=== PATIENT | female | born 1950 | race Caucasian/White ===

== ENCOUNTER 2018-05-03 06:29 | Day surgery (SDC) | payer MEDICARE, BC ==
[2018-05-03] MEDS ORDERED: Bupivacaine 0.5% 30 ML SDV ONE (06:54)
[2018-05-03] MEDS ORDERED: Sodium Chloride 0.45% 1,000 ML IV SCH (07:00)
[2018-05-03] MEDS ORDERED: Propofol 200 MG/20 ML SDV ONE (07:01)
[2018-05-03] MEDS ORDERED: Midazolam 1 MG/ML 2 ML SDV ONE (07:02)
[2018-05-03] MEDS ORDERED: fentaNYL 100 MCG/2 ML SDV ONE (07:02)
--- NOTE | 2018-05-03 10:00 | PCM.OPNOTE ---
- General Post-Op/Procedure Note Date of Surgery/Procedure: 05/03/18 Operative Procedure(s): A1 renetta release right index finger Findings: thick A1 renetta, slight thickening of flexor tendon Pre Op Diagnosis: Stenosing tenosynovitis right index finger Post-Op Diagnosis: Stenosing tenosynovitis right index finger Anesthesia Technique: Local, Moderate Sedation Primary Surgeon: Juan FULLER in mLs: 2 Condition: Good Free Text/Narrative:: Intake & Output 05/02/18 05/03/18 05/03/18 22:59 06:59 14:59 Intake Total 75 Balance 75 Surgical indications: 67-year-old female with a history of progressively painful locking and catching of the right index finger. 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 She has a history of other trigger fingers and trigger finger releases with good success. She has not had success with steroid injection. She now presents for a release of the A1 renetta of the right index finger for stenosing tenosynovitis. Risks benefits and potential complications of the procedure were discussed with the patient and she agrees to proceed. Procedure: Patient was placed supine with a tourniquet about the right upper arm. Arm was prepped and draped in a sterile fashion. Patient was given moderate sedation by anesthesia and 3 cc of 0.5% Marcaine was infiltrated into the skin overlying the metacarpal head and A1 renetta of the index finger.Transverse incision was then made in line with the flexor crease. Blunt dissection was then carried down through the subcutaneous tissues. Retractors were then placed. Pressure from the retractors provided adequate compression for minimal bleeding at the surgical site and the tourniquet was not utilized. The inferior edge of the A1 renetta was identified. This was quite thick and fibrotic. Small incision was made longitudinally with a 15 blade. Scissor was then used to extend the release distally.This was taken up to the distal end. Free passage of the scissor after release indicated successful release of the renetta. Finger was taken through range of motion and the flexor tendons were visualized. Slight thickening was noted in the region of the A1 renetta but no significant abnormalities were identified. The incision was then closed with 3- 0 nylon in interrupted mattress fashion. Sterile dressing was applied. Patient tolerated the procedure very well and there were no complications. She was taken from the operating room in stable condition.
== END 2018-05-03 09:25 | disposition home or self-care (01) ==
LOC: JP.SDS 06:29
PROVIDERS: ATTEND Specialist
DX: M65.841 Other synovitis and tenosynovitis, right hand (principal); M65.321 Trigger finger, right index finger; I10 Essential (primary) hypertension; E11.9 Type 2 diabetes mellitus without complications; E78.5 Hyperlipidemia, unspecified; I25.2 Old myocardial infarction; Z79.4 Long term (current) use of insulin; Z79.899 Other long term (current) drug therapy
CPT/HCPCS: 26055; J2250; J2704; J3010; J3490

== ENCOUNTER 2019-04-25 06:13 | Day surgery (SDC) | payer MEDICARE, BC ==
[2019-04-25] MEDS ORDERED: Bupivacaine 0.5% 30 ML SDV ONE ×2 (06:32→07:37)
[2019-04-25] MEDS ORDERED: Lactated Ringers 1,000 ML IV SCH (07:00)
[2019-04-25] MEDS ORDERED: Clindamycin Phosphate 900 MG in Sodium Chloride 0.9% 100 ML IV ONE (07:00)
[2019-04-25] MEDS ORDERED: Nozin Nasal Sanitizer NASBOTH ONE (07:00)
[2019-04-25] MEDS ORDERED: fentaNYL 100 MCG/2 ML SDV ONE ×2 (07:35→08:40)
[2019-04-25] MEDS ORDERED: Propofol 200 MG/20 ML SDV ONE ×3 (07:35→09:07)
[2019-04-25] MEDS ORDERED: Midazolam 1 MG/ML 2 ML SDV ONE (07:35)
--- NOTE | 2019-05-21 10:22 | OR ---
DATE OF PROCEDURE: 04/25/2019 SURGEON: Juan Hinojosa MD PREOPERATIVE DIAGNOSIS: Right rotator cuff tear. POSTOPERATIVE DIAGNOSES: Right rotator cuff tear, large with moderate retraction. PROCEDURE: 1. Arthroscopy of right shoulder with repair of rotator cuff. 2. Subacromial decompression with acromioplasty. ANESTHESIA: Interscalene block with sedation. INDICATIONS: Ms. Taylor is a 68-year-old female with history of progressive pain and weakness in the right shoulder for the past several months. She has difficulty with any overhead lifting and reaching. Examination and MRI were consistent with a complete tear of the rotator cuff with retraction. She now presents to the operating room for arthroscopy of the right shoulder with attempted arthroscopic rotator cuff repair and possible open repair. Risks, benefits, and potential complications were discussed with the patient. She agrees with plan. PROCEDURE IN DETAIL: After adequate anesthesia was obtained, the patient was placed in the lateral decubitus position and secured with the beanbag positioner. Right shoulder and arm were then prepped and draped in a sterile fashion. 10 pounds of traction was placed in the shoulder traction unit. A standard posterior portal was established, and the glenohumeral joint was evaluated. This revealed some mild degenerative changes in the glenoid without full-thickness cartilage loss. Mild fraying of the labrum was present. Grade 2 and 3 changes noted in the humeral head and glenoid. Biceps tendon was intact. Subscapularis was intact. The supraspinatus and infraspinatus showed full-thickness tears. Anterior portal was established. A shaver was introduced, and the degenerative portion of the labrum was mildly debrided. Biceps tendon was further evaluated by pulling this into the joint revealing no significant tear or tendinopathy. The scope was then removed and placed in the subacromial space. Moderate thickening of the bursa was present. Lateral portal was established. A combination of a bur and ablation wand were used to debride the bursa for better visualization. A full-thickness tears of the supraspinatus and infraspinatus were noted with moderate retraction back to the midportion of the humeral head. Undersurface of the acromion was cleared of soft tissue. An acromioplasty was then performed with a bur, removing approximately 5 mm, and bevelling that medially and posteriorly. Elevator was used to free adhesions from the rotator cuff, and a grasper was used to evaluate the mobility of the cuff. It was found that the cuff edge could be brought over to the footprint. Edges of the cuff were lightly debrided with a shaver. Superior surface of the greater tuberosity was lightly decorticated with a bur. Two Mitek Healix anchors were then placed, one anterior and one posterior. Expressew device was then used to place sutures up through the tendon in a mattress fashion. Sutures were then tied in standard arthroscopic technique. Additional fixation was obtained with a third anchor in the edge, which was used to place sutures in a simple fashion reinforcing the repair laterally. Two of the suture pairs were brought through a Mitek knotless anchor. Awl was used to prepare a tunnel off the lateral edge of the tuberosity. Knotless anchor was then secured in this position forming a suture bridge and a double row repair. Sutures were then cut. Arm was taken through internal and external rotation. Repair was assessed and found to be very stable. Scope was withdrawn. Port sites were closed in a standard fashion, infiltrated with Marcaine, and a sterile dressing was applied. The patient tolerated the procedure well. There were no complications, taken from the operating room in stable condition. Juan Hinojosa MD /[id number] [id number]
== END 2019-04-25 16:01 | disposition home or self-care (01) ==
LOC: JP.SDS 06:13
PROVIDERS: ATTEND Specialist
DX: M75.121 Complete rotator cuff tear or rupture of right shoulder, not specified as traumatic (principal); I13.10 Hypertensive heart and chronic kidney disease without heart failure, with stage 1 through stage 4 chronic kidney disease, or unspecified chronic kidney disease; E11.22 Type 2 diabetes mellitus with diabetic chronic kidney disease; N18.3 Chronic kidney disease, stage 3 (moderate); E78.5 Hyperlipidemia, unspecified; F41.8 Other specified anxiety disorders; E66.9 Obesity, unspecified; H90.3 Sensorineural hearing loss, bilateral; I25.10 Atherosclerotic heart disease of native coronary artery without angina pectoris; Z88.1 Allergy status to other antibiotic agents; Z88.2 Allergy status to sulfonamides; Z79.02 Long term (current) use of antithrombotics/antiplatelets; Z79.899 Other long term (current) drug therapy; Z98.890 Other specified postprocedural states; Z68.35 Body mass index [BMI] 35.0-35.9, adult
CPT/HCPCS: 29826; 29827; A9270; C1713; J2250; J2704; J3010; J3490; J7050; J7120

== ENCOUNTER 2019-07-25 17:28 | Emergency (ER) | payer MEDICARE, BC ==
[2019-07-25] MEDS ORDERED: Sodium Chloride 0.9% 10 ML Syringe FLUSH PRN (17:49)
[2019-07-25] MEDS ORDERED: Aspirin 81 MG Tab.Chew PO ONE (17:49)
[2019-07-25] MEDS ORDERED: Morphine 2 MG/ML Syringe IVPUSH PRN (17:49)
[2019-07-25] MEDS: Nitroglycerin 0.4 MG Tab.SL SL PRN ×3 (17:58→18:19)
[2019-07-25] MEDS ORDERED: Heparin Sodium 5,000 Units/ML Vial IVPUSH ONE (18:24)
[2019-07-25] MEDS ORDERED: Ticagrelor 90 MG Tab PO ONE (18:24)
[2019-07-25] MEDS ORDERED: Nitroglycerin/D5W 25 MG/250 ML BOTTLE IV SCH (18:30)
[2019-07-25] MEDS ORDERED: Heparin Sodium/D5W 25,000 UNITS/500 ML BAG IV SCH (18:30)
[2019-07-25] MEDS ORDERED: fentaNYL 100 MCG/2 ML SDV IVPUSH ONE (18:30)
--- NOTE | 2019-07-25 18:34 | EDM.PDOC ---
ED HPI GENERAL MEDICAL PROBLEM - General Chief Complaint: Abdominal Pain Stated Complaint: VOMITING,NAUSEA,UNABLE TO URINATE Time Seen by Provider: 07/25/19 17:39 Source of Information: Reports: Patient, Family, Old Records, RN Notes Reviewed History Limitations: Reports: No Limitations - History of Present Illness INITIAL COMMENTS - FREE TEXT/NARRATIVE: 68-year-old female presents emergency department a complaint of nausea and vomiting with chest pressure. She has a known history of coronary artery disease with stenting in 2014 she states the intense nausea and vomiting with chest pressure began about 330 this afternoon she was very diaphoretic initially but that has resolved she rates her pain 5 out of 10 she does have a history of diabetes mellitus type 2 as well Lower Abdominal Pain Score (Numeric/FACES): 6 - Related Data Allergies Allergy/AdvReac Type Severity Reaction Status Date / Time cephalexin Allergy Other Verified 07/25/19 18:01 Sulfa (Sulfonamide Allergy Rash Verified 07/25/19 18:01 Antibiotics) Home Meds: Home Meds ALPRAZolam [Alprazolam] 0.5 mg PO Q6H PRN 08/05/17 [History] Citalopram Hydrobromide [Celexa] 20 mg PO DAILY 08/05/17 [History] Clopidogrel Bisulfate [Clopidogrel] 75 mg PO DAILY 08/05/17 [History] Insulin Glarg,Human.Rec.Analog [Lantus Solostar] 25 units SQ DAILY 08/05/17 [ History] Insulin Lispro [Humalog] 10 - 20 unit SQ TIDMEALS 08/05/17 [History] Losartan [Cozaar] 50 mg PO DAILY 08/05/17 [History] Metoprolol Succinate 25 mg PO DAILY 08/05/17 [History] Nitroglycerin [Nitrostat] 0.4 mg SL ASDIRECTED PRN 08/05/17 [History] Oxybutynin [Oxybutynin ER] 10 mg PO DAILY 08/05/17 [History] amLODIPine Besylate [Norvasc] 2.5 mg PO DAILY 08/05/17 [History] atorvaSTATin Calcium [Atorvastatin Calcium] 40 mg PO BEDTIME 08/05/17 [History] hydroCHLOROthiazide [Hydrochlorothiazide] 25 mg PO DAILY 08/05/17 [History] Acetaminophen [Tylenol] 1 - 2 tab PO Q4HR PRN 05/03/19 [History] LORazepam [Ativan] 1 mg PO ASDIRECTED 07/25/19 [History] Past Medical History HEENT History: Reports: Hard of Hearing, Impaired Vision Cardiovascular History: Reports: Blood Clots/VTE/DVT, CAD, Hypertension, [place], Stents (2014) Gastrointestinal History: Reports: Colon Polyp Genitourinary History: Reports: Renal Calculus, Urinary Incontinence 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: Musculoskeletal History: Reports: Other (See Below) Other Musculoskeletal History: s/p R RCR 04/25/19 Psychiatric History: Reports: Anxiety, Depression Endocrine/Metabolic History: Reports: Diabetes, Type II, Obesity/BMI 30+ Hematologic History: Reports: Anticoagulation Therapy - Infectious Disease History 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 mcl joint surgery x1 Social & Family History - Family History Family Medical History: Noncontributory - Tobacco Use Smoking Status *Q: Never Smoker - Caffeine Use Caffeine Use: Reports: Coffee - Recreational Drug Use Recreational Drug Use: No ED ROS GENERAL - Review of Systems Review Of Systems: See Below Constitutional: Reports: Diaphoresis HEENT: Reports: No Symptoms Respiratory: Reports: No Symptoms Cardiovascular: Reports: Chest Pain GI/Abdominal: Reports: Nausea, Vomiting : Reports: No Symptoms ED EXAM, GENERAL - Physical Exam Exam: See Below Exam Limited By: No Limitations General Appearance: Alert, WD/WN, Mild Distress Neck: Normal Inspection, Supple, Non-Tender, Full Range of Motion Respiratory/Chest: No Respiratory Distress, Lungs Clear, Normal Breath Sounds, No Accessory Muscle Use, Chest Non-Tender Cardiovascular: Regular Rate, Rhythm, No Murmur GI/Abdominal: Soft, Non-Tender Course - Vital Signs Last Recorded V/S: Last Vital Signs Temp 97.6 F 07/25/19 17:46 Pulse 61 07/25/19 18:38 Resp 12 07/25/19 18:38 BP 117/74 07/25/19 18:38 Pulse Ox 96 07/25/19 18:38 - Orders/Labs/Meds Orders: Active Orders 24 hr Category Date Time Status Cardiac Monitoring [RC] .As Directed Care 07/25/19 17:52 Active Cardiac Monitoring [RC] STAT Care 07/25/19 18:24 Active Communication Order [RC] Per Unit Routine Care 07/25/19 18:24 Active EKG Documentation Completion [RC] ASDIRECTED Care 07/25/19 17:53 Active Peripheral IV Care [RC] . DIRECTED Care 07/25/19 17:53 Active Chest 1V Frontal [CR] Stat Exams 07/25/19 17:52 Taken Heparin Sodium/D5W [Heparin 25,000 Units in D5W 500 ML] Med 07/25/19 18:30 Active 25,000 units in 500 ml IV TITRATE Morphine Med 07/25/19 17:49 Active 2 mg IVPUSH Q10M PRN Nitroglycerin [Nitrostat] Med 07/25/19 17:49 Active 0.4 mg SL Q5M PRN Nitroglycerin/D5W [Nitroglycerin 25 MG/D5W 250 ML] Med 07/25/19 18:30 Active 25 mg in 250 ml IV TITRATE Sodium Chloride 0.9% [Saline Flush] Med 07/25/19 17:49 Active 10 ml FLUSH ASDIRECTED PRN Peripheral IV Insertion Adult [OM.PC] Stat Oth 07/25/19 17:49 Ordered Saline Lock Insert [OM.PC] Stat Oth 07/25/19 17:49 Ordered EKG 12 Lead [EK] Stat Ther 07/25/19 17:52 Ordered Medication Orders Nitroglycerin/Dextrose (Nitroglycerin 25 Mg/D5w 250 Ml) 25 mg in 250 mls @ 6 mls/hr IV TITRATE DORA; Protocol Last Admin: 07/25/19 18:27 Dose: 10 mcg/min, 6 mls/hr Heparin Sodium/Dextrose (Heparin 25,000 Units In D5w 500 Ml) 25,000 units in 500 mls @ 19.791 mls/hr IV TITRATE DORA; Protocol Morphine Sulfate (Morphine) 2 mg IVPUSH Q10M PRN PRN Reason: Chest Pain Stop: 07/26/19 17:52 Last Admin: 07/25/19 18:05 Dose: 2 mg Nitroglycerin (Nitrostat) 0.4 mg SL Q5M PRN PRN Reason: Chest Pain Stop: 07/26/19 17:52 Last Admin: 07/25/19 18:19 Dose: 0.4 mg Admin: 07/25/19 18:14 Dose: 0.4 mg Admin: 07/25/19 17:58 Dose: 0.4 mg Sodium Chloride (Saline Flush) 10 ml FLUSH ASDIRECTED PRN PRN Reason: Keep Vein Open Last Admin: 07/25/19 18:38 Dose: 10 ml Labs: Laboratory Tests 07/25/19 07/25/19 Range/Units 17:45 17:45 WBC 13.8 H (4.5-11.0) K/uL RBC 4.69 (3.30-5.50) M/uL Hgb 14.3 (12.0-15.0) g/dL Hct 42.5 (36.0-48.0) % MCV 91 (80-98) fL MCH 31 (27-31) pg MCHC 34 (32-36) % Plt Count 261 (150-400) K/uL Neut % (Auto) 75 H (36-66) % Lymph % (Auto) 19 L (24-44) % [place] % (Auto) 6 (2-6) % Eos % (Auto) 1 L (2-4) % Baso % (Auto) 0 (0-1) % Sodium 136 L (140-148) mmol/L Potassium 3.4 L (3.6-5.2) mmol/L Chloride 99 L (100-108) mmol/L Carbon Dioxide 25 (21-32) mmol/L Anion Gap 15.4 H (5.0-14.0) mmol/L BUN 15 (7-18) mg/dL Creatinine 1.2 H (0.6-1.0) mg/dL Est Cr Clr Drug Dosing 32.92 mL/min Estimated GFR (MDRD) 44 L (>60) Glucose 226 H (74-106) mg/dL Calcium 9.3 (8.5-10.1) mg/dL Total Bilirubin 0.9 (0.2-1.0) mg/dL AST 26 (15-37) U/L ALT 33 (12-78) U/L Alkaline Phosphatase 100 (46-116) U/L Troponin I 0.620 H* (0.000-0.056) ng/mL Total Protein 7.6 (6.4-8.2) g/dL Albumin 3.7 (3.4-5.0) g/dL Globulin 3.9 H (2.3-3.5) g/dL Albumin/Globulin Ratio 1.0 L (1.2-2.2) Meds: Medications Generic Name Dose Route Start Last Admin Trade Name Freq PRN Reason Stop Dose Admin Nitroglycerin/Dextrose 25 mg in 250 mls @ 6 mls/hr 07/25/19 18:30 07/25/19 18 :27 Nitroglycerin 25 Mg/D5w 250 Ml IV 10 mcg/min TITRATE DORA 6 mls/hr Administration Protocol 10 MCG/MIN Heparin Sodium/Dextrose 25,000 units in 500 mls @ 19.791 mls/hr 07/25/19 18: 30 Heparin 25,000 Units In D5w 500 Ml IV TITRATE DORA Protocol 12 UNITS/KG/HR Morphine Sulfate 2 mg 07/25/19 17:49 07/25/19 18:05 Morphine IVPUSH 07/26/19 17:52 2 mg Q10M PRN Administration Chest Pain Nitroglycerin 0.4 mg 07/25/19 17:49 07/25/19 18:19 Nitrostat SL 07/26/19 17:52 0.4 mg Q5M PRN Administration Chest Pain Sodium Chloride 10 ml 07/25/19 17:49 07/25/19 18:38 Saline Flush FLUSH 10 ml ASDIRECTED PRN Administration Keep Vein Open Discontinued Medications Generic Name Dose Route Start Last Admin Trade Name Freq PRN Reason Stop Dose Admin Aspirin 324 mg 07/25/19 17:49 07/25/19 17:57 Aspirin PO 07/25/19 17:50 324 mg ONETIME ONE Administration Fentanyl 50 mcg 07/25/19 18:30 07/25/19 18:36 Sublimaze IVPUSH 07/25/19 18:31 50 mcg ONETIME ONE Administration Heparin Sodium (Porcine) 4,000 units 07/25/19 18:24 07/25/19 18:33 Heparin Sodium IVPUSH 07/25/19 18:25 4,000 units BOLUS ONE Administration Ticagrelor 180 mg 07/25/19 18:24 07/25/19 18:33 Brilinta PO 07/25/19 18:25 180 mg ONETIME ONE Administration Departure - Departure Time of Disposition: 18:47 Disposition: DC/Tfer to Acute Hospital 02 Reason for Transfer *Q: Primary PCI Indicated Condition: Fair Clinical Impression: STEMI (ST elevation myocardial infarction) Qualifiers: Involved coronary artery: unspecified coronary artery Qualified Code(s): I21.3 - ST elevation (STEMI) myocardial infarction of unspecified site Referrals: Александр Cavazos MD [Primary Care Provider] - Forms: ED Department Discharge Critical Care Note - Critical Care Note Total Time (mins): 30 Sepsis Event Note - Evaluation Sepsis Screening Result: No Definite Risk - Focused Exam Vital Signs: Vital Signs Temp Temp Pulse Pulse Resp BP BP 07/25/19 18:38 61 12 117/74 07/25/19 18:19 130/82 07/25/19 18:14 128/75 07/25/19 17:58 140/91 H 07/25/19 17:46 97.6 F 66 18 141/73 H 07/25/19 17:44 97.0 F 69 9 L BP Pulse Ox 07/25/19 18:38 96 07/25/19 18:19 07/25/19 18:14 07/25/19 17:58 07/25/19 17:46 97 07/25/19 17:44 141/73 H 96 Date Exam was Performed: 07/25/19 Time Exam was Performed: 18:43 - My Orders Last 24 Hours: My Active Orders 07/25/19 17:49 Morphine 2 mg IVPUSH Q10M PRN Nitroglycerin [Nitrostat] 0.4 mg SL Q5M PRN Sodium Chloride 0.9% [Saline Flush] 10 ml FLUSH ASDIRECTED PRN Peripheral IV Insertion Adult [OM.PC] Stat Saline Lock Insert [OM.PC] Stat 07/25/19 17:52 Cardiac Monitoring [RC] .As Directed Chest 1V Frontal [CR] Stat EKG 12 Lead [EK] Stat 07/25/19 17:53 EKG Documentation Completion [RC] ASDIRECTED Peripheral IV Care [RC] . DIRECTED 07/25/19 18:24 Cardiac Monitoring [RC] STAT Communication Order [RC] Per Unit Routine 07/25/19 18:30 Heparin Sodium/D5W [Heparin 25,000 Units in D5W 500 ML] 25,000 units in 500 ml IV TITRATE Nitroglycerin/D5W [Nitroglycerin 25 MG/D5W 250 ML] 25 mg in 250 ml IV TITRATE - Assessment/Plan Last 24 Hours: My Active Orders 07/25/19 17:49 Morphine 2 mg IVPUSH Q10M PRN Nitroglycerin [Nitrostat] 0.4 mg SL Q5M PRN Sodium Chloride 0.9% [Saline Flush] 10 ml FLUSH ASDIRECTED PRN Peripheral IV Insertion Adult [OM.PC] Stat Saline Lock Insert [OM.PC] Stat 07/25/19 17:52 Cardiac Monitoring [RC] .As Directed Chest 1V Frontal [CR] Stat EKG 12 Lead [EK] Stat 07/25/19 17:53 EKG Documentation Completion [RC] ASDIRECTED Peripheral IV Care [RC] . DIRECTED 07/25/19 18:24 Cardiac Monitoring [RC] STAT Communication Order [RC] Per Unit Routine 07/25/19 18:30 Heparin Sodium/D5W [Heparin 25,000 Units in D5W 500 ML] 25,000 units in 500 ml IV TITRATE Nitroglycerin/D5W [Nitroglycerin 25 MG/D5W 250 ML] 25 mg in 250 ml IV TITRATE Plan: Assessment Acuity = acute Site and laterality = ST elevation myocardial infarction Etiology = coronary artery disease Manifestations = none Location of injury = Home Lab values = WBC elevated 13.8 consistent leukocytosis potassium low at 3.4 consistent hypokalemia creatinine elevated 1.2 consistent with chronic renal failure stage G3 B glucose elevated to 26 consistent hyperglycemia troponin elevated 0.62 consistent with myocardial infarction EKG does show subtle changes ST elevations V2 V3 and V4 with no reciprocal changes chest x-ray I did review films myself I cannot appreciate any acute process, the official read from radiology is pending Plan Discussed case with Dr. Thompson emergency room physician [facility] at 1820 kindly excepted the patient in transport will be transported via air care [facility] also discussed the case with cardiology Dr. Mcqueen at 1840 thus far patient has been given 3 nitro 2 mg morphine 50 mcg of fentanyl 4 baby aspirin 4000 heparin unit bolus heparin drip initiated in route 180 mg Brilinta nitro drip initiated This note was dictated using [employer] voice recognition software please call with any questions on syntax or grammar.
--- NOTE | 2019-07-26 10:01 | CR ---
CHEST: Portable 07/25/2019 at 6:24 PM CLINICAL HISTORY:Chest pain COMPARISON:None FINDINGS: The heart is enlarged. Pulmonary vascularity is normal. There are atherosclerotic changes in the aorta.. No infiltrate effusion or pneumothorax seen. Impression: Cardiomegaly No acute cardiopulmonary process
== END 2019-07-25 18:58 ==
LOC: JP.ED 17:28
DX: I21.3 ST elevation (STEMI) myocardial infarction of unspecified site (principal); I10 Essential (primary) hypertension; I25.10 Atherosclerotic heart disease of native coronary artery without angina pectoris; I25.2 Old myocardial infarction; F41.9 Anxiety disorder, unspecified; F32.9 Major depressive disorder, single episode, unspecified; E11.9 Type 2 diabetes mellitus without complications; Z79.4 Long term (current) use of insulin; E66.9 Obesity, unspecified; Z68.34 Body mass index [BMI] 34.0-34.9, adult; Z88.1 Allergy status to other antibiotic agents; Z88.2 Allergy status to sulfonamides; Z79.02 Long term (current) use of antithrombotics/antiplatelets; Z79.899 Other long term (current) drug therapy
CPT/HCPCS: 36415; 71045; 80053; 84484; 85025; 93005; 93010; 96365; 96375; 99291; A9270; J1644; J2270; J3010; J3490

== ENCOUNTER 2019-07-28 11:38 | Emergency (ER) | payer MEDICARE, BC ==
--- NOTE | 2019-07-28 13:29 | EDM.PDOC ---
ED HPI GENERAL MEDICAL PROBLEM - General Chief Complaint: Fever Stated Complaint: FEVER,POST HEART ATTACK Time Seen by Provider: 07/28/19 12:15 Source of Information: Reports: Patient, Family History Limitations: Reports: No Limitations - History of Present Illness INITIAL COMMENTS - FREE TEXT/NARRATIVE: 68-year-old female in worth of intermittent fevers for the past 72 hours, just discharged yesterday after having an angiogram and cardiac stent placed. She did have a Mg catheter in for at least 4 hours. Prior to discharge she ran a low-grade fever but it resolved, last night she again spiked a fever but at 2 AM it was gone. This morning her temperature was 100.4 so she came in to be evaluated, her temperature is now normal. She has no shortness of breath or cough, no nausea or vomiting, no cold symptoms or urinary symptoms. Duration: Day(s): (Intermittent fevers for 2 days) Associated Symptoms: Reports: Fever/Chills. Denies: Confusion, Chest Pain, Cough, Headaches, Malaise, Nausea/Vomiting, Shortness of Breath, Weakness - Related Data Allergies Allergy/AdvReac Type Severity Reaction Status Date / Time cephalexin Allergy Other Verified 07/28/19 12:07 Sulfa (Sulfonamide Allergy Rash Verified 07/28/19 12:07 Antibiotics) Home Meds: Home Meds ALPRAZolam [Alprazolam] 0.5 mg PO Q6H PRN 08/05/17 [History] Citalopram Hydrobromide [Celexa] 20 mg PO DAILY 08/05/17 [History] Insulin Glarg,Human.Rec.Analog [Lantus Solostar] 25 units SQ DAILY 08/05/17 [ History] Insulin Lispro [Humalog] 10 - 20 unit SQ TIDMEALS 08/05/17 [History] Losartan [Cozaar] 25 mg PO DAILY 08/05/17 [History] Metoprolol Succinate 25 mg PO DAILY 08/05/17 [History] Nitroglycerin [Nitrostat] 0.4 mg SL ASDIRECTED PRN 08/05/17 [History] Oxybutynin [Oxybutynin ER] 10 mg PO DAILY 08/05/17 [History] atorvaSTATin Calcium [Atorvastatin Calcium] 80 mg PO BEDTIME 08/05/17 [History] Acetaminophen [Tylenol] 1 - 2 tab PO Q4HR PRN 05/03/19 [History] LORazepam [Ativan] 1 mg PO ASDIRECTED 07/25/19 [History] Aspirin [Halfprin] 81 mg PO DAILY 07/28/19 [History] Cholecalciferol (Vitamin D3) [Vitamin D3] 400 unit PO DAILY 07/28/19 [History] Magnesium Oxide [Magnesium] 400 mg PO DAILY 07/28/19 [History] [place]-3/DHA/Epa/Fish Oil [Fish Oil 1,000 mg Softgel] 1 cap PO DAILY 07/28/19 [ History] Ticagrelor [Brilinta] 90 mg PO BID 07/28/19 [History] Vitamin E 100 unit PO DAILY 07/28/19 [History] Past Medical History HEENT History: Reports: Hard of Hearing, Impaired Vision Cardiovascular History: Reports: Angina, Blood Clots/VTE/DVT, CAD, Hypertension , ID, Stents Other Cardiovascular History: Life vest Gastrointestinal History: Reports: Colon Polyp Genitourinary History: Reports: Renal Calculus, Urinary Incontinence 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: Musculoskeletal History: Reports: Other (See Below) Other Musculoskeletal History: shoulder rotator cuff Psychiatric History: Reports: Anxiety, Depression Endocrine/Metabolic History: Reports: Diabetes, Type II, Obesity/BMI 30+ Hematologic History: Reports: Anticoagulation Therapy - Infectious Disease History Infectious 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, MRSA - Past Surgical History Head Surgeries/Procedures: Reports: None Cardiovascular Surgical History: Reports: Coronary Artery Stent, Percutaneous Transluminal Angioplasty Other Cardiovascular Surgeries/Procedures: 2019 Musculoskeletal Surgical History: Reports: Shoulder Surgery Other Musculoskeletal Surgeries/Procedures:: Apr 2019 Social & Family History - Family History Family Medical History: Noncontributory - Tobacco Use Smoking Status *Q: Never Smoker - Caffeine Use Caffeine Use: Reports: Coffee - Recreational Drug Use Recreational Drug Use: No ED ROS GENERAL - Review of Systems Review Of Systems: See Below Constitutional: Reports: Fever, Chills. Denies: Malaise, Decreased Appetite HEENT: Denies: Ear Pain, Rhinitis, Throat Pain Respiratory: Denies: Shortness of Breath, Cough Cardiovascular: Denies: Chest Pain (She has had no chest pain since her cardiac procedure) GI/Abdominal: Denies: Diarrhea, Nausea, Vomiting : Denies: Frequency, Urgency Skin: Reports: No Symptoms Neurological: Denies: Headache ED EXAM, GENERAL - Physical Exam Exam: See Below Exam Limited By: No Limitations General Appearance: Alert, No Apparent Distress Head: Atraumatic Respiratory/Chest: No Respiratory Distress, Lungs Clear Cardiovascular: Regular Rate, Rhythm GI/Abdominal: Soft, Non-Tender Neurological: Alert, Oriented Psychiatric: Normal Affect, Normal Mood Skin Exam: Warm, Dry Course - Vital Signs Last Recorded V/S: Last Vital Signs Temp 97.1 F 07/28/19 12:04 Pulse 119 H 07/28/19 12:04 Resp 18 07/28/19 12:04 BP 133/81 07/28/19 12:04 Pulse Ox 94 L 07/28/19 12:04 - Orders/Labs/Meds Orders: Active Orders 24 hr Category Date Time Status CULTURE URINE [RM] Stat Lab 07/28/19 13:20 Ordered Labs: Laboratory Tests 07/28/19 Range/Units 12:59 Urine Color Yellow (YELLOW) Urine Appearance Cloudy A (CLEAR) Urine pH 6.0 (5.0-8.0) Ur Specific [place] 1.015 (1.008-1.030) Urine Protein 30 H (NEGATIVE) mg/dL Urine Glucose (UA) 500 H (NEGATIVE) mg/dL Urine Ketones Negative (NEGATIVE) mg/dL Urine Occult Blood Moderate H (NEGATIVE) Urine Nitrite Negative (NEGATIVE) Urine Bilirubin Negative (NEGATIVE) Urine Urobilinogen 0.2 (0.2-1.0) EU/dL Ur Leukocyte Esterase Small H (NEGATIVE) Urine RBC 10-20 H (0-5) Urine WBC 75-100 H (0-5) Ur Epithelial Cells Not seen Amorphous Sediment Not seen Urine Bacteria Many Urine Mucus Few - Re-Assessments/Exams Free Text/Narrative Re-Assessment/Exam: 07/28/19 14:18 A mini cath UA was obtained and was markedly abnormal with many bacteria, WBCs and RBCs. A culture was initiated and the patient was placed on Macrobid 100 mg twice daily for 5 days. She will return if worsening despite treatment, we will be in touch with her with culture results if changes need to be made. Departure - Departure Time of Disposition: 13:48 Disposition: Home, Self-Care 01 Clinical Impression: UTI (urinary tract infection) Qualifiers: Urinary tract infection type: acute cystitis Hematuria presence: with hematuria Qualified Code(s): N30.01 - Acute cystitis with hematuria Fever Qualifiers: Fever type: due to other condition Qualified Code(s): R50.81 - Fever presenting with conditions classified elsewhere - Discharge Information Instructions: Urinary Tract Infection, Adult, [id number] Referrals: Александр Cavazos MD [Primary Care Provider] - Forms: ED Department Discharge Care Plan Goals: Take antibiotic twice daily for 5 days as prescribed. Return in 2 to 3 days if not improving satisfactorily, or sooner if worsening such as vomiting the medication, increased pain or persistent high fever Sepsis Event Note - Evaluation Sepsis Screening Result: Possible Sepsis Risk - Focused Exam Vital Signs: Vital Signs Temp Pulse Resp BP Pulse Ox 07/28/19 12:04 97.1 F 119 H 18 133/81 94 L Date Exam was Performed: 07/28/19 Time Exam was Performed: 14:15 - My Orders Last 24 Hours: My Active Orders 07/28/19 13:20 CULTURE URINE [RM] Stat - Assessment/Plan Last 24 Hours: My Active Orders 07/28/19 13:20 CULTURE URINE [RM] Stat
== END 2019-07-28 14:07 | disposition home or self-care (01) ==
LOC: JP.ED 11:38
DX: N30.01 Acute cystitis with hematuria (principal); I25.10 Atherosclerotic heart disease of native coronary artery without angina pectoris; I10 Essential (primary) hypertension; I25.2 Old myocardial infarction; F41.9 Anxiety disorder, unspecified; F32.9 Major depressive disorder, single episode, unspecified; E66.9 Obesity, unspecified; Z68.34 Body mass index [BMI] 34.0-34.9, adult; E11.9 Type 2 diabetes mellitus without complications; Z79.4 Long term (current) use of insulin; Z88.1 Allergy status to other antibiotic agents; Z88.2 Allergy status to sulfonamides; Z79.899 Other long term (current) drug therapy
CPT/HCPCS: 81001; 87086; 87088; 87186; 99283

== ENCOUNTER 2020-05-04 18:02 | Emergency (ER) | payer MEDICARE, BC ==
--- NOTE | 2020-05-04 19:42 | EDM.PDOC ---
ED HPI GENERAL MEDICAL PROBLEM - General Chief Complaint: General Stated Complaint: FEVER, CHILLS Time Seen by Provider: 05/04/20 19:30 Source of Information: Reports: Patient, Family History Limitations: Reports: No Limitations - History of Present Illness INITIAL COMMENTS - FREE TEXT/NARRATIVE: 69-year-old female who has had increased urinary frequency, burning, and now fever and weakness over the past 24 hours. She does have a history of UTIs and was recently on Cipro. Denies any abdominal pain, some mild back pain. She still has a lingering cough from Covid which she has mostly recovered. Onset: Gradual Duration: Day(s): (24 to 36 hours) Associated Symptoms: Reports: Cough, Fever/Chills, Malaise, Weakness. Denies: Shortness of Breath Back Pain Score (Numeric/FACES): 3 - Related Data Allergies Allergy/AdvReac Type Severity Reaction Status Date / Time cephalexin Allergy Other Verified 05/04/20 19:07 Sulfa (Sulfonamide Allergy Rash Verified 05/04/20 19:07 Antibiotics) Home Meds: Home Meds ALPRAZolam [Alprazolam] 0.5 mg PO Q6H PRN 08/05/17 [History] Citalopram Hydrobromide [Celexa] 20 mg PO DAILY 08/05/17 [History] Insulin Glarg,Human.Rec.Analog [Lantus Solostar] 12 units SQ DAILY 08/05/17 [History] Insulin Lispro [Humalog] 3 unit SQ TIDMEALS 08/05/17 [History] Losartan [Cozaar] 50 mg PO DAILY 08/05/17 [History] Metoprolol Succinate 25 mg PO DAILY 08/05/17 [History] Nitroglycerin [Nitrostat] 0.4 mg SL ASDIRECTED PRN 08/05/17 [History] Oxybutynin [Oxybutynin ER] 10 mg PO DAILY 08/05/17 [History] atorvaSTATin Calcium [Atorvastatin Calcium] 80 mg PO BEDTIME 08/05/17 [History] Acetaminophen [Tylenol] 1 - 2 tab PO Q4HR PRN 05/03/19 [History] Aspirin [Halfprin] 81 mg PO DAILY 07/28/19 [History] Cholecalciferol (Vitamin D3) [Vitamin D3] 400 unit PO DAILY 07/28/19 [History] [place]-3/DHA/Epa/Fish Oil [Fish Oil 1,000 mg Softgel] 1 cap PO DAILY 07/28/19 [History] Ticagrelor [Brilinta] 90 mg PO BID 07/28/19 [History] Vitamin E 100 unit PO DAILY 07/28/19 [History] Fluconazole [Diflucan] 150 mg PO DAILY PRN 08/30/19 [History] Loperamide HCl [Imodium A-D] 2 mg PO ASDIRECTED PRN 08/30/19 [History] Spironolactone [Aldactone] 25 mg PO DAILY 08/30/19 [History] Cefuroxime Axetil [Ceftin] 500 mg PO BID 7 Days #14 tablet 05/04/20 [Rx] Past Medical History HEENT History: Reports: Hard of Hearing, Impaired Vision Cardiovascular History: Reports: Angina, Blood Clots/VTE/DVT, CAD, Hypertension, [place], Stents Other Cardiovascular History: Life vest Gastrointestinal History: Reports: Colon Polyp Genitourinary History: Reports: Renal Calculus, Urinary Incontinence 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: Musculoskeletal History: Reports: Other (See Below) Other Musculoskeletal History: shoulder rotator cuff Psychiatric History: Reports: Anxiety, Depression Endocrine/Metabolic History: Reports: Diabetes, Type II, Obesity/BMI 30+ Hematologic History: Reports: Anticoagulation Therapy - Infectious Disease History Infectious 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, MRSA - Past Surgical History Head Surgeries/Procedures: Reports: None HEENT Surgical History: Reports: Cataract Surgery Cardiovascular Surgical History: Reports: Coronary Artery Stent, Percutaneous Transluminal Angioplasty Other Cardiovascular Surgeries/Procedures: 2019 GI Surgical History: Reports: Colonoscopy Female Surgical History: Reports: Section Endocrine Surgical History: Reports: None Musculoskeletal Surgical History: Reports: Shoulder Surgery Other Musculoskeletal Surgeries/Procedures:: RT RCR Apr 25 2019 Social & Family History - Family History Family Medical History: No Pertinent Family History - Tobacco Use Tobacco Use Status *Q: Never Tobacco User Second Hand Smoke Exposure: Yes - Caffeine Use Caffeine Use: Reports: Coffee - Recreational Drug Use Recreational Drug Use: No ED ROS GENERAL - Review of Systems Review Of Systems: See Below Constitutional: Reports: Fever, Chills, Malaise HEENT: Reports: No Symptoms Respiratory: Reports: Shortness of Breath, Cough (Cough and shortness of breath has been consistent with post Covid symptoms and not worse) Cardiovascular: Denies: Chest Pain GI/Abdominal: Denies: Abdominal Pain, Diarrhea, Nausea, Vomiting : Reports: Dysuria, Flank Pain, Frequency, Urgency Skin: Reports: No Symptoms Neurological: Reports: No Symptoms Psychiatric: Reports: No Symptoms ED EXAM, GENERAL - Physical Exam Exam: See Below Exam Limited By: No Limitations General Appearance: Alert, No Apparent Distress Eye Exam: Bilateral Eye: Normal Inspection Respiratory/Chest: No Respiratory Distress, Lungs Clear Cardiovascular: Regular Rate, Rhythm. No: Tachycardia GI/Abdominal: Soft, Other (Mild discomfort to palpation across the lower abdomen but no focal guarding or rebound, no significant tenderness) Extremities: Normal Inspection Neurological: Alert, Oriented Course - Vital Signs Last Recorded V/S: Last Vital Signs Temp 101.4 F H 05/04/20 19:06 Pulse 112 H 05/04/20 20:36 Resp 15 05/04/20 19:06 BP 121/77 05/04/20 20:36 Pulse Ox 93 L 05/04/20 20:36 - Orders/Labs/Meds Orders: Active Orders 24 hr Category Date Time Status CULTURE BLOOD [BC] Urgent Lab 05/04/20 19:45 Received CULTURE BLOOD [BC] Urgent Lab 05/04/20 19:55 Received CULTURE URINE [RM] Stat Lab 05/04/20 20:41 Received Blood Culture x2 Reflex Set [OM.PC] Urgent Oth 05/04/20 19:38 Ordered Labs: Laboratory Tests 05/04/20 05/04/20 05/04/20 Range/Units 19:38 19:45 19:45 WBC 11.6 H (4.5-11.0) K/uL RBC 4.35 (3.30-5.50) M/uL Hgb 13.5 (12.0-15.0) g/dL Hct 40.5 (36.0-48.0) % MCV 93 (80-98) fL MCH 31 (27-31) pg MCHC 33 (32-36) % Plt Count 169 (150-400) K/uL Neut % (Auto) 84 H (36-66) % Lymph % (Auto) 8 L (24-44) % Williams % (Auto) 8 H (2-6) % Eos % (Auto) 0 L (2-4) % Baso % (Auto) 0 (0-1) % Sodium 134 L (140-148) mmol/L Potassium 3.5 L (3.6-5.2) mmol/L Chloride 100 (100-108) mmol/L Carbon Dioxide 23 (21-32) mmol/L Anion Gap 14.5 H (5.0-14.0) mmol/L BUN 15 (7-18) mg/dL Creatinine 1.0 (0.6-1.0) mg/dL Est Cr Clr Drug Dosing 38.94 mL/min Estimated GFR (MDRD) 55 L (>60) Glucose 202 H (74-106) mg/dL Calcium 9.2 (8.5-10.1) mg/dL Total Bilirubin 1.8 H D (0.2-1.0) mg/dL AST 21 (15-37) U/L ALT 28 (12-78) U/L Alkaline Phosphatase 69 (46-116) U/L Total Protein 7.1 (6.4-8.2) g/dL Albumin 3.5 (3.4-5.0) g/dL Globulin 3.6 H (2.3-3.5) g/dL Albumin/Globulin Ratio 1.0 L (1.2-2.2) Urine Color Yellow (YELLOW) Urine Appearance Slightly cloudy A (CLEAR) Urine pH 5.5 (5.0-8.0) Ur Specific [place] 1.015 (1.008-1.030) Urine Protein Negative (NEGATIVE) mg/dL Urine Glucose (UA) Negative (NEGATIVE) mg/dL Urine Ketones Trace H (NEGATIVE) mg/dL Urine Occult Blood Moderate H (NEGATIVE) Urine Nitrite Negative (NEGATIVE) Urine Bilirubin Negative (NEGATIVE) Urine Urobilinogen 0.2 (0.2-1.0) EU/dL Ur Leukocyte Esterase Small H (NEGATIVE) Urine RBC 0-5 (0-5) Urine WBC 10-20 H (0-5) Ur Epithelial Cells Not seen Amorphous Sediment Rare Urine Bacteria Occasional Urine Mucus Not seen Meds: Medications Discontinued Medications Generic Name Dose Route Start Last Admin Trade Name Freq PRN Reason Stop Dose Admin Sodium Chloride 1,000 mls @ 500 mls/hr 05/04/20 19:45 05/04/20 20:09 Normal Saline IV 500 mls/hr ASDIRECTED DORA Administration Ceftriaxone Sodium 1 gm/ 50 mls @ 100 mls/hr 05/04/20 19:56 05/04/20 20:09 Sodium Chloride IV 05/04/20 20:25 100 mls/hr ONETIME ONE Administration - Re-Assessments/Exams Free Text/Narrative Re-Assessment/Exam: 05/04/20 19:41 IV was started, blood cultures obtained as well as a CBC CMP and urine was obtained by quick cath in and out. Labs are pending, normal saline started at 500 cc an hour. 05/04/20 20:46 Patient tolerated the IV Rocephin very well, his white count was only mildly elevated. Urine did show bacteria and some WBCs, culture was initiated she will be placed on cefuroxime 500 mg twice daily for 7 days which was sent to the pharmacy. She can fill that tomorrow and initiate oral antibiotics, return if worsening or concerns. Departure - Departure Time of Disposition: 21:16 Disposition: Home, Self-Care Clinical Impression: UTI (urinary tract infection) Qualifiers: Urinary tract infection type: acute cystitis Hematuria presence: without hematuria Qualified Code(s): N30.00 - Acute cystitis without hematuria - Discharge Information Prescriptions: Cefuroxime Axetil [Ceftin] 500 mg PO BID 7 Days #14 tablet Instructions: Urinary Tract Infection, Adult Referrals: Brandon Moncada NP [Primary Care Provider] - Forms: ED Department Discharge Care Plan Goals: Fill oral antibiotic and take for 7 full days, stay hydrated and increase activity as tolerated. Return anytime if worsening or concerns, or consider rechecking in 2 to 3 days if not improving satisfactorily. Sepsis Event Note (ED) - Evaluation Sepsis Screening Result: No Definite Risk - Focused Exam Vital Signs: Vital Signs Temp Pulse Resp BP Pulse Ox 05/04/20 20:36 112 H 121/77 93 L 05/04/20 19:06 101.4 F H 87 15 129/72 95 05/04/20 18:43 101.4 F H 87 15 129/72 95 - My Orders Last 24 Hours: My Active Orders 05/04/20 19:38 Blood Culture x2 Reflex Set [OM.PC] Urgent 05/04/20 19:45 CULTURE BLOOD [BC] Urgent 05/04/20 19:55 CULTURE BLOOD [BC] Urgent 05/04/20 20:41 CULTURE URINE [RM] Stat - Assessment/Plan Last 24 Hours: My Active Orders 05/04/20 19:38 Blood Culture x2 Reflex Set [OM.PC] Urgent 05/04/20 19:45 CULTURE BLOOD [BC] Urgent 05/04/20 19:55 CULTURE BLOOD [BC] Urgent 05/04/20 20:41 CULTURE URINE [RM] Stat
[2020-05-04] MEDS ORDERED: Sodium Chloride 0.9% 1,000 ML IV SCH (19:45)
[2020-05-04] MEDS ORDERED: cefTRIAXone 1 GM in Sodium Chloride 0.9% 50 ML IV ONE (19:56)
== END 2020-05-04 21:16 | disposition home or self-care (01) ==
LOC: JP.ED 18:02
DX: N30.00 Acute cystitis without hematuria (principal); I25.10 Atherosclerotic heart disease of native coronary artery without angina pectoris; I10 Essential (primary) hypertension; I25.2 Old myocardial infarction; E11.9 Type 2 diabetes mellitus without complications; E66.9 Obesity, unspecified; Z68.29 Body mass index [BMI] 29.0-29.9, adult; Z79.01 Long term (current) use of anticoagulants; Z79.4 Long term (current) use of insulin; Z79.82 Long term (current) use of aspirin; Z79.899 Other long term (current) drug therapy; Z88.1 Allergy status to other antibiotic agents; Z88.2 Allergy status to sulfonamides; Z77.22 Contact with and (suspected) exposure to environmental tobacco smoke (acute) (chronic)
CPT/HCPCS: 36415; 80053; 81001; 85025; 87040; 87086; 96365; 99283; J0696; J7030; J7050; 87088; 87186

== ENCOUNTER 2020-05-05 18:00 | Inpatient (IN) | payer MEDICARE, BC ==
--- NOTE | 2020-05-05 19:14 | EDM.PDOC ---
ED HPI GENERAL MEDICAL PROBLEM - General Chief Complaint: General Stated Complaint: FEVER, BODY ACHES Time Seen by Provider: 05/05/20 19:01 Source of Information: Reports: Patient, Family, Old Records, RN Notes Reviewed History Limitations: Reports: No Limitations - History of Present Illness INITIAL COMMENTS - FREE TEXT/NARRATIVE: 69-year-old female presents emergency department with a with a follow-up from yesterday's visit blood cultures at the time were drawn yesterday they did come back positive with [id number] rods. She did receive 1 g of Rocephin yesterday was started on her oral antibiotics today unfortunately she is only had 1 dose of the believe that was Ceftin she states she has had continued fevers and chills no nausea vomiting no shortness of breath - Related Data Allergies Allergy/AdvReac Type Severity Reaction Status Date / Time cephalexin Allergy Other Verified 05/04/20 19:07 Sulfa (Sulfonamide Allergy Rash Verified 05/04/20 19:07 Antibiotics) Home Meds: Home Meds ALPRAZolam [Alprazolam] 0.5 mg PO Q6H PRN 08/05/17 [History] Citalopram Hydrobromide [Celexa] 20 mg PO DAILY 08/05/17 [History] Insulin Glarg,Human.Rec.Analog [Lantus Solostar] 12 units SQ DAILY 08/05/17 [History] Insulin Lispro [Humalog] 3 unit SQ TIDMEALS 08/05/17 [History] Losartan [Cozaar] 50 mg PO DAILY 08/05/17 [History] Metoprolol Succinate 25 mg PO DAILY 08/05/17 [History] Nitroglycerin [Nitrostat] 0.4 mg SL ASDIRECTED PRN 08/05/17 [History] Oxybutynin [Oxybutynin ER] 10 mg PO DAILY 08/05/17 [History] atorvaSTATin Calcium [Atorvastatin Calcium] 80 mg PO BEDTIME 08/05/17 [History] Acetaminophen [Tylenol] 1 - 2 tab PO Q4HR PRN 05/03/19 [History] Aspirin [Halfprin] 81 mg PO DAILY 07/28/19 [History] Cholecalciferol (Vitamin D3) [Vitamin D3] 400 unit PO DAILY 07/28/19 [History] [place]-3/DHA/Epa/Fish Oil [Fish Oil 1,000 mg Softgel] 1 cap PO DAILY 07/28/19 [History] Ticagrelor [Brilinta] 90 mg PO BID 07/28/19 [History] Vitamin E 100 unit PO DAILY 07/28/19 [History] Fluconazole [Diflucan] 150 mg PO DAILY PRN 08/30/19 [History] Loperamide HCl [Imodium A-D] 2 mg PO ASDIRECTED PRN 08/30/19 [History] Spironolactone [Aldactone] 25 mg PO DAILY 08/30/19 [History] Cefuroxime Axetil [Ceftin] 500 mg PO BID 7 Days #14 tablet 05/04/20 [Rx] Past Medical History HEENT History: Reports: Hard of Hearing, Impaired Vision Cardiovascular History: Reports: Angina, Blood Clots/VTE/DVT, CAD, Hypertension, [place], Stents Other Cardiovascular History: Life vest Gastrointestinal History: Reports: Colon Polyp Genitourinary History: Reports: Renal Calculus, Urinary Incontinence 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: Musculoskeletal History: Reports: Other (See Below) Other Musculoskeletal History: shoulder rotator cuff Psychiatric History: Reports: Anxiety, Depression Endocrine/Metabolic History: Reports: Diabetes, Type II, Obesity/BMI 30+ Hematologic History: Reports: Anticoagulation Therapy - Infectious Disease History Infectious 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, MRSA - Past Surgical History Head Surgeries/Procedures: Reports: None HEENT Surgical History: Reports: Cataract Surgery Cardiovascular Surgical History: Reports: Coronary Artery Stent, Percutaneous Transluminal Angioplasty Other Cardiovascular Surgeries/Procedures: 2019 GI Surgical History: Reports: Colonoscopy Female Surgical History: Reports: Section Endocrine Surgical History: Reports: None Musculoskeletal Surgical History: Reports: Shoulder Surgery Other Musculoskeletal Surgeries/Procedures:: RT RCR Apr 25 2019 Social & Family History - Family History Family Medical History: No Pertinent Family History - Tobacco Use Tobacco Use Status *Q: Never Tobacco User Second Hand Smoke Exposure: Yes - Caffeine Use Caffeine Use: Reports: Tea - Recreational Drug Use Recreational Drug Use: No ED ROS GENERAL - Review of Systems Review Of Systems: See Below Constitutional: Reports: Fever, Chills HEENT: Reports: No Symptoms Respiratory: Reports: No Symptoms Cardiovascular: Reports: No Symptoms GI/Abdominal: Reports: No Symptoms : Reports: Dysuria Musculoskeletal: Reports: No Symptoms ED EXAM, GENERAL - Physical Exam Exam: See Below Exam Limited By: No Limitations General Appearance: Alert, WD/WN, No Apparent Distress Respiratory/Chest: No Respiratory Distress, Lungs Clear, Normal Breath Sounds, No Accessory Muscle Use, Chest Non-Tender Cardiovascular: Regular Rate, Rhythm, No Murmur GI/Abdominal: Soft, Non-Tender Course - Vital Signs Last Recorded V/S: Last Vital Signs Temp 101.7 F H 05/05/20 19:02 Pulse 86 05/05/20 19:02 Resp 16 05/05/20 19:02 BP 118/59 L 05/05/20 19:02 Pulse Ox 93 L 05/05/20 19:02 - Orders/Labs/Meds Orders: Active Orders 24 hr Category Date Time Status Vital Signs [RC] Q1H Care 05/05/20 19:13 Active Sodium Chloride 0.9% [Normal Saline] 1,000 ml Med 05/05/20 19:15 Active IV ASDIRECTED cefTRIAXone [Rocephin] 1 gm Med 05/05/20 19:15 Active Sodium Chloride 0.9% [Normal Saline] 50 ml IV Q24H Medication Orders Sodium Chloride (Normal Saline) 1,000 mls @ 999 mls/hr IV ASDIRECTED [facility] Last Admin: 05/05/20 19:53 Dose: 999 mls/hr Documented by: HANNAH Ceftriaxone Sodium 1 gm/ (Sodium Chloride) 50 mls @ 100 mls/hr IV Q24H [facility] Last Admin: 05/05/20 19:59 Dose: 100 mls/hr Documented by: HANNAH Labs: Laboratory Tests 05/05/20 05/05/20 05/05/20 Range/Units 19:28 19:28 19:28 WBC 9.2 (4.5-11.0) K/uL RBC 3.93 (3.30-5.50) M/uL Hgb 12.1 (12.0-15.0) g/dL Hct 36.4 (36.0-48.0) % MCV 93 (80-98) fL MCH 31 (27-31) pg MCHC 33 (32-36) % Plt Count 132 L (150-400) K/uL Neut % (Auto) 83 H (36-66) % Lymph % (Auto) 8 L (24-44) % [place] % (Auto) 9 H (2-6) % Eos % (Auto) 0 L (2-4) % Baso % (Auto) 0 (0-1) % Sodium 129 L (140-148) mmol/L Potassium 3.5 L (3.6-5.2) mmol/L Chloride 96 L (100-108) mmol/L Carbon Dioxide 20 L (21-32) mmol/L Anion Gap 16.5 H (5.0-14.0) mmol/L BUN 17 (7-18) mg/dL Creatinine 1.0 (0.6-1.0) mg/dL Est Cr Clr Drug Dosing 38.94 mL/min Estimated GFR (MDRD) 55 L (>60) Glucose 249 H (74-106) mg/dL Lactic Acid 0.7 (0.4-2.0) mmol/L Calcium 8.6 (8.5-10.1) mg/dL Total Bilirubin 1.6 H (0.2-1.0) mg/dL AST 17 (15-37) U/L ALT 23 (12-78) U/L Alkaline Phosphatase 54 (46-116) U/L C-Reactive Protein 14.71 H (0.0-0.3) mg/dL Total Protein 6.4 (6.4-8.2) g/dL Albumin 2.9 L (3.4-5.0) g/dL Globulin 3.5 (2.3-3.5) g/dL Albumin/Globulin Ratio 0.8 L (1.2-2.2) Procalcitonin ng/mL 05/05/20 Range/Units 19:28 WBC (4.5-11.0) K/uL RBC (3.30-5.50) M/uL Hgb (12.0-15.0) g/dL Hct (36.0-48.0) % MCV (80-98) fL MCH (27-31) pg MCHC (32-36) % Plt Count (150-400) K/uL Neut % (Auto) (36-66) % Lymph % (Auto) (24-44) % [place] % (Auto) (2-6) % Eos % (Auto) (2-4) % Baso % (Auto) (0-1) % Sodium (140-148) mmol/L Potassium (3.6-5.2) mmol/L Chloride (100-108) mmol/L Carbon Dioxide (21-32) mmol/L Anion Gap (5.0-14.0) mmol/L BUN (7-18) mg/dL Creatinine (0.6-1.0) mg/dL Est Cr Clr Drug Dosing mL/min Estimated GFR (MDRD) (>60) Glucose (74-106) mg/dL Lactic Acid (0.4-2.0) mmol/L Calcium (8.5-10.1) mg/dL Total Bilirubin (0.2-1.0) mg/dL AST (15-37) U/L ALT (12-78) U/L Alkaline Phosphatase (46-116) U/L C-Reactive Protein (0.0-0.3) mg/dL Total Protein (6.4-8.2) g/dL Albumin (3.4-5.0) g/dL Globulin (2.3-3.5) g/dL Albumin/Globulin Ratio (1.2-2.2) Procalcitonin 0.60 ng/mL Meds: Medications Generic Name Dose Route Start Last Admin Trade Name Freq PRN Reason Stop Dose Admin Sodium Chloride 1,000 mls @ 999 mls/hr 05/05/20 19:15 05/05/20 19:53 Normal Saline IV 999 mls/hr ASDIRECTED DORA Administration Ceftriaxone Sodium 1 gm/ 50 mls @ 100 mls/hr 05/05/20 19:15 05/05/20 19:59 Sodium Chloride IV 100 mls/hr Q24H DORA Administration Departure - Departure Time of Disposition: 20:32 Disposition: Admitted As Inpatient 64 Clinical Impression: Bacteremia - Discharge Information Referrals: Brandon Moncada NP [Primary Care Provider] - Forms: ED Department Discharge Sepsis Event Note (ED) - Evaluation Sepsis Screening Result: No Definite Risk - Focused Exam Vital Signs: Vital Signs Temp Pulse Resp BP Pulse Ox 05/05/20 19:02 101.7 F H 86 16 118/59 L 93 L 05/05/20 18:35 101.7 F H 86 16 118/59 L 93 L - My Orders Last 24 Hours: My Active Orders 05/05/20 19:13 Vital Signs [RC] Q1H 05/05/20 19:15 Sodium Chloride 0.9% [Normal Saline] 1,000 ml IV ASDIRECTED cefTRIAXone [Rocephin] 1 gm Sodium Chloride 0.9% [Normal Saline] 50 ml IV Q24H - Assessment/Plan Last 24 Hours: My Active Orders 05/05/20 19:13 Vital Signs [RC] Q1H 05/05/20 19:15 Sodium Chloride 0.9% [Normal Saline] 1,000 ml IV ASDIRECTED cefTRIAXone [Rocephin] 1 gm Sodium Chloride 0.9% [Normal Saline] 50 ml IV Q24H Plan: Assessment Acuity = acute Site and laterality = bacteremia underlying urinary tract infection Etiology = gram-negative hunter Manifestations = fever Location of injury = Home Lab values = CBC unremarkable sodium low at 129 consistent hyponatremia glucose elevated to 49 consistent hyperglycemia total bilirubin was elevated 1.6 consistent with hyperbilirubinemia CRP elevated 14.71 and procalcitonin 0.6+ blood cultures gram-negative rods from yesterday Plan Call discussed case hospitalist on-call at 2014 he kindly agreed to come and evaluate the patient emergency department for admission she has been given 1 g Rocephin in the emergency department as well as 1 L fluids This note was dictated using [employer] voice recognition software please call with any questions on syntax or grammar.
[2020-05-05] MEDS ORDERED: Sodium Chloride 0.9% 1,000 ML IV SCH (19:15)
[2020-05-05] MEDS ORDERED: cefTRIAXone 1 GM in Sodium Chloride 0.9% 50 ML IV SCH (19:15)
--- NOTE | 2020-05-05 21:16 | PCM.HP.2 ---
H&P History of Present Illness - General Date of Service: 05/05/20 Admit Problem/Dx: Admission Diagnosis/Problem Admission Diagnosis/Problem Pyelonephritis Source of Information: Patient, Family, Provider History Limitations: Reports: No Limitations - History of Present Illness Initial Comments - Free Text/Narative: CC: I just didn't feel quite right HPI: Pam presents to the emergency room after a call back from the emergency room staff today reported positive blood cultures. She has been ill for about 3 days. Initial symptoms included urinary urgency and some fatigue. She then developed back pain across her lower back. She described this as a moderate achy pain. No relief from acetaminophen. No obvious triggers to make it worse. She had a syncopal episode at home yesterday while she was trying to get to the bathroom. She has not had a recurrence of the syncope. Yesterday she had some difficulty with nausea and persistent urinary difficulties. She was evaluated in the emergency room and diagnosed with a urinary tract infection. She received a dose of ceftriaxone and was sent home with oral antibiotics. Her vital signs were stable and laboratory work-up fairly unremarkable other than her urinalysis. Blood cultures were collected last night. After she got home she had an episode of emesis. She had a fever as high as 102 last night. This morning she was fatigued and still nauseated. She did not have much of an appetite. Temperature this morning was normal but did climb as the day went on. She came in late this afternoon after she was contacted about the positive blood cultures. Work-up in the emergency room revealed a fever of greater than 101. She has normal white count. CRP is quite elevated at more than 14. There is no e vidence for sepsis. Pyelonephritis is suspected and she will be admitted for IV antibiotics and inpatient management since she is failing outpatient therapy. - Related Data Allergies/Adverse Reactions: Allergies Allergy/AdvReac Type Severity Reaction Status Date / Time cephalexin Allergy Other Verified 05/04/20 19:07 Sulfa (Sulfonamide Allergy Rash Verified 05/04/20 19:07 Antibiotics) Home Medications: Home Meds Citalopram Hydrobromide [Celexa] 20 mg PO DAILY 08/05/17 [History] Insulin Glarg,Human.Rec.Analog [Lantus Solostar] 12 units SQ BEDTIME 08/05/17 [History] Insulin Lispro [Humalog] 3 unit SQ TIDMEALS 08/05/17 [History] Losartan [Cozaar] 100 mg PO BEDTIME 08/05/17 [History] Metoprolol Succinate 25 mg PO DAILY 08/05/17 [History] Nitroglycerin [Nitrostat] 0.4 mg SL ASDIRECTED PRN 08/05/17 [History] Oxybutynin [Oxybutynin ER] 10 mg PO DAILY 08/05/17 [History] atorvaSTATin Calcium [Atorvastatin Calcium] 80 mg PO BEDTIME 08/05/17 [History] Aspirin [Halfprin] 81 mg PO DAILY 07/28/19 [History] [place]-3/DHA/Epa/Fish Oil [Fish Oil 1,000 mg Softgel] 1 cap PO BID 07/28/19 [History] Ticagrelor [Brilinta] 90 mg PO BID 07/28/19 [History] Spironolactone [Aldactone] 25 mg PO DAILY 08/30/19 [History] Cefuroxime Axetil [Ceftin] 500 mg PO BID 7 Days #14 tablet 05/04/20 [Rx] Cholecalciferol (Vitamin D3) [Vitamin D3] 2,000 unit PO BEDTIME 05/05/20 [History] Vitamin E (Dl,Tocopheryl Acet) [Vitamin E] 200 unit PO DAILY 05/05/20 [History] Past Medical History HEENT History: Reports: Hard of Hearing, Impaired Vision Cardiovascular History: Reports: Angina, Blood Clots/VTE/DVT, CAD, Hypertension, [place], Stents Other Cardiovascular History: Life vest Gastrointestinal History: Reports: Colon Polyp Genitourinary History: Reports: Renal Calculus, Urinary Incontinence 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: Musculoskeletal History: Reports: Other (See Below) Other Musculoskeletal History: shoulder rotator cuff Psychiatric History: Reports: Anxiety, Depression Endocrine/Metabolic History: Reports: Diabetes, Type II, Obesity/BMI 30+ Hematologic History: Reports: Anticoagulation Therapy - Infectious Disease History Infectious 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, MRSA - Past Surgical History Head Surgeries/Procedures: Reports: None HEENT Surgical History: Reports: Cataract Surgery Cardiovascular Surgical History: Reports: Coronary Artery Stent, Percutaneous Transluminal Angioplasty Other Cardiovascular Surgeries/Procedures: 2019 GI Surgical History: Reports: Colonoscopy Female Surgical History: Reports: Section Endocrine Surgical History: Reports: None Musculoskeletal Surgical History: Reports: Shoulder Surgery Other Musculoskeletal Surgeries/Procedures:: RT RCR Apr 25 2019 Social & Family History - Family History Family Medical History: No Pertinent Family History - Tobacco Use Tobacco Use Status *Q: Never Tobacco User Second Hand Smoke Exposure: Yes - Caffeine Use Caffeine Use: Reports: Tea - Alcohol Use Alcohol Use History: No - Recreational Drug Use Recreational Drug Use: No H&P Review of Systems - Review of Systems: Review Of Systems: See Below Free Text/Narrative: A complete 12 point review of systems was obtained. Pertinent positives and negatives are noted in the history of present illness. All other systems were reviewed and were negative except as noted. Exam - Exam Exam: See Below - Vital Signs Vital Signs: Last Vital Signs Temp 38.7 C H 05/05/20 19:02 Pulse 86 05/05/20 19:02 Resp 16 05/05/20 19:02 BP 118/59 L 05/05/20 19:02 Pulse Ox 93 L 05/05/20 19:02 Weight: 70.307 kg - Exam Quality Assessment: No: Supplemental Oxygen General: Alert, Oriented, Cooperative. No: Mild Distress HEENT: Conjunctiva Clear. No: Mucosa Moist & [place] (dry), Scleral Icterus Neck: Supple, Trachea Midline Lungs: Clear to Auscultation, Normal Respiratory Effort Cardiovascular: Regular Rate, Regular Rhythm. No: Systolic Murmur GI/Abdominal Exam: Normal Bowel Sounds, Soft, Non-Tender, No Distention Back Exam: Normal Inspection, CVA Tenderness (L) Extremities: No Pedal Edema. No: Increased Warmth Peripheral Pulses: 2+: Dorsalis Pedis (L), Dorsalis Pedis (R) Skin: Warm, Dry Neuro Extensive - Mental Status: Alert, Oriented x3, Nl Response to Commands Neuro Extensive - Motor, Sensory, Reflexes: No: Dysarthria, Abnormal Motor, Tremor Psychiatric: Alert, Normal Affect - Patient Data Lab Results Last 24 hrs: Laboratory Results - last 24 hr 05/05/20 05/05/20 05/05/20 Range/Units 19:28 19:28 19:28 WBC 9.2 (4.5-11.0) K/uL RBC 3.93 (3.30-5.50) M/uL Hgb 12.1 (12.0-15.0) g/dL Hct 36.4 (36.0-48.0) % MCV 93 (80-98) fL MCH 31 (27-31) pg MCHC 33 (32-36) % Plt Count 132 L (150-400) K/uL Neut % (Auto) 83 H (36-66) % Lymph % (Auto) 8 L (24-44) % [place] % (Auto) 9 H (2-6) % Eos % (Auto) 0 L (2-4) % Baso % (Auto) 0 (0-1) % Sodium 129 L (140-148) mmol/L Potassium 3.5 L (3.6-5.2) mmol/L Chloride 96 L (100-108) mmol/L Carbon Dioxide 20 L (21-32) mmol/L Anion Gap 16.5 H (5.0-14.0) mmol/L BUN 17 (7-18) mg/dL Creatinine 1.0 (0.6-1.0) mg/dL Est Cr Clr Drug Dosing 38.94 mL/min Estimated GFR (MDRD) 55 L (>60) Glucose 249 H (74-106) mg/dL Lactic Acid 0.7 (0.4-2.0) mmol/L Calcium 8.6 (8.5-10.1) mg/dL Total Bilirubin 1.6 H (0.2-1.0) mg/dL AST 17 (15-37) U/L ALT 23 (12-78) U/L Alkaline Phosphatase 54 (46-116) U/L C-Reactive Protein 14.71 H (0.0-0.3) mg/dL Total Protein 6.4 (6.4-8.2) g/dL Albumin 2.9 L (3.4-5.0) g/dL Globulin 3.5 (2.3-3.5) g/dL Albumin/Globulin Ratio 0.8 L (1.2-2.2) Procalcitonin ng/mL 05/05/20 Range/Units 19:28 WBC (4.5-11.0) K/uL RBC (3.30-5.50) M/uL Hgb (12.0-15.0) g/dL Hct (36.0-48.0) % MCV (80-98) fL MCH (27-31) pg MCHC (32-36) % Plt Count (150-400) K/uL Neut % (Auto) (36-66) % Lymph % (Auto) (24-44) % [place] % (Auto) (2-6) % Eos % (Auto) (2-4) % Baso % (Auto) (0-1) % Sodium (140-148) mmol/L Potassium (3.6-5.2) mmol/L Chloride (100-108) mmol/L Carbon Dioxide (21-32) mmol/L Anion Gap (5.0-14.0) mmol/L BUN (7-18) mg/dL Creatinine (0.6-1.0) mg/dL Est Cr Clr Drug Dosing mL/min Estimated GFR (MDRD) (>60) Glucose (74-106) mg/dL Lactic Acid (0.4-2.0) mmol/L Calcium (8.5-10.1) mg/dL Total Bilirubin (0.2-1.0) mg/dL AST (15-37) U/L ALT (12-78) U/L Alkaline Phosphatase (46-116) U/L C-Reactive Protein (0.0-0.3) mg/dL Total Protein (6.4-8.2) g/dL Albumin (3.4-5.0) g/dL Globulin (2.3-3.5) g/dL Albumin/Globulin Ratio (1.2-2.2) Procalcitonin 0.60 ng/mL Result Diagrams: 05/05/20 19:28 05/05/20 19:28 Sepsis Event Note - Evaluation Sepsis Screening Result: No Definite Risk - Focused Exam Vital Signs: Vital Signs Temp Pulse Resp BP Pulse Ox 05/05/20 19:02 38.7 C H 86 16 118/59 L 93 L 05/05/20 18:35 38.7 C H 86 16 118/59 L 93 L *Q Meaningful Use (ADM) - VTE Risk Assess *Q Each Risk Factor Represents 1 Point: Obesity ( BMI > 25 kg/m2) Total Score 1 Point Risk Factors: 1 Each Risk Factor Represents 2 Points: Age 60 - 74 Years Total Score 2 Point Risk Factors: 2 Each Risk Factor Represents 3 Points: None Total Score 3 Point Risk Factors: 0 Each Risk Factor Represents 5 Points: None Total Score 5 Point Risk Factors: 0 Venous Thromboembolism Risk Factor Score *Q: 3 - Problem List (1) Pyelonephritis of left kidney SNOMED Code(s): 56553477 ICD Code: N12 - TUBULO-INTERSTITIAL NEPHRITIS, NOT SPCF ACUTE OR CHRONIC Status: Acute Current Visit: Yes (2) Bacteremia SNOMED Code(s): 1634220 ICD Code: R78.81 - BACTEREMIA Status: Acute Current Visit: Yes (3) Diabetes mellitus, insulin dependent (IDDM), controlled SNOMED Code(s): 61975213, 608427268, 866134297 ICD Code: JSI4560 - Status: Chronic Current Visit: Yes (4) CAD (coronary artery disease) SNOMED Code(s): 79757021 ICD Code: I25.10 - ATHSCL HEART DISEASE OF [place] CORONARY ARTERY W/O ANG PCTRS Status: Chronic Current Visit: Yes Qualifiers: Coronary Disease-Associated Artery/Lesion type: [place]stone artery [place] vs. transplanted heart: grindstone heart Associated angina: without angina Qualified Code(s): I25.10 - Atherosclerotic heart disease of [place] coronary artery without angina pectoris Problem List Initiated/Reviewed/Updated: Yes Orders Last 24hrs: Active Orders 24 hr Category Date Time Status Patient Status Manage Transfer [TRANSFER] Routine ADT 05/05/20 20:57 Active Vital Signs [RC] Q1H Care 05/05/20 19:13 Active Sodium Chloride 0.9% [Normal Saline] 1,000 ml Med 05/05/20 19:15 Active IV ASDIRECTED cefTRIAXone [Rocephin] 1 gm Med 05/05/20 19:15 Active Sodium Chloride 0.9% [Normal Saline] 50 ml IV Q24H Resuscitation Status Routine Resus Stat 05/05/20 20:58 Ordered Medication Orders Sodium Chloride (Normal Saline) 1,000 mls @ 999 mls/hr IV ASDIRECTED DORA Last Admin: 05/05/20 19:53 Dose: 999 mls/hr Documented by: HANNAH Ceftriaxone Sodium 1 gm/ (Sodium Chloride) 50 mls @ 100 mls/hr IV Q24H [facility] Last Admin: 05/05/20 19:59 Dose: 100 mls/hr Documented by: HANNAH Assessment/Plan Comment:: ASSESSMENT AND PLAN - Left pyelonephritis-complicated by gram-negative bacteremia but no evidence for sepsis at this time. She is getting worse despite IV antibiotics last night and outpatient oral antibiotics today. Fortunately her vital signs are stable at this point. She does feel weak and mildly confused. White count is normal. IV antibiotic coverage with -Ceftriaxone and ciprofloxacin tonight -Follow-up urine and blood cultures in the morning, adjust antibiotics as indic ated -IV fluids overnight -Symptomatic management of pain and nausea -Abdominal imaging if she worsens or does not get better Insulin-dependent diabetes mellitus-normally this is well controlled. Sugars have been running high the last few days. 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 Last one was about 1 year ago. No active anginal symptoms at this time. -Continue medical management Maintenance issues - - DVT prophylaxis -mechanical in addition to dual antiplatelet therapy - GI prophylaxis -not indicated - Nutrition -consistent carbohydrates - Mg catheter -not indicated CODE STATUS -full code Admission justification -this patient will be admitted for inpatient services and is medically appropriate meeting medical necessity for inpatient admission as outlined in my documentation. I reasonably expect the patient will require inpatient services that span a period time over 2 midnights. I reasonably expect this patient to be discharged or transferred within 96 hours [facility]. Disposition -anticipate discharge home after the hospital stay Primary care physician - Brandon Dickinson M.D. - Mortality Measure Prognosis:: Good
[2020-05-05] MEDS ORDERED: Ciprofloxacin in D5W 400 MG in Premix Bag 1 BAG IV ONE ×2 (22:19)
[2020-05-05] MEDS ORDERED: LORazepam 2 MG/ML SDV IVPUSH PRN (22:19)
[2020-05-05] MEDS ORDERED: oxyCODONE 5 MG Tab PO PRN (22:19)
[2020-05-05] MEDS ORDERED: Ondansetron 4 MG Tab.DIS PO PRN (22:19)
[2020-05-05] MEDS ORDERED: Ondansetron 4 MG/2 ML SDV IV PRN (22:19)
[2020-05-05] MEDS ORDERED: Magnesium Hydroxide 400 MG/5 ML Susp 30 ML Cup PO PRN (22:19)
[2020-05-05] MEDS ORDERED: Melatonin 3 MG Tab PO PRN (22:19)
[2020-05-05] MEDS ORDERED: Acetaminophen 325 MG Tab PO PRN (22:19)
[2020-05-05] MEDS: atorvaSTATin 20 MG Tab PO SCH (22:48)
[2020-05-05] MEDS: Insulin Glargine,Human Rec. Analog 100 Units/ML 3 ML Pen SUBCUT SCH (22:49)
[2020-05-05] MEDS: Ticagrelor 90 MG Tab PO SCH (22:50)
[2020-05-05] MEDS: Lactobacillus Rhamnosus GG (Probiotic) Cap PO SCH (23:25)
[2020-05-05] MEDS: Sodium Chloride 0.9% 1,000 ML IV SCH (23:26)
[2020-05-06] MEDS: Sodium Chloride 0.9% 1,000 ML IV SCH (07:08)
[2020-05-06] MEDS: Magnesium Sulfate/Water 2 GM/50 ML BAG IV SCH ×3 (08:23→19:23)
[2020-05-06] MEDS: Spironolactone 25 MG Tab PO SCH (08:24)
[2020-05-06] MEDS: Ticagrelor 90 MG Tab PO SCH ×2 (08:24→21:04)
[2020-05-06] MEDS: Aspirin 81 MG Tab.EC PO SCH (08:25)
[2020-05-06] MEDS: Citalopram 20 MG Tab PO SCH (08:25)
[2020-05-06] MEDS: Potassium Chloride 20 MEQ Tab.ER PO SCH ×2 (08:25→21:05)
[2020-05-06] MEDS: Lactobacillus Rhamnosus GG (Probiotic) Cap PO SCH ×2 (08:25→21:04)
[2020-05-06] MEDS: Metoprolol Succinate 25 MG Tab.ER PO SCH (08:26)
[2020-05-06] MEDS: Oxybutynin 5 MG Tab PO SCH ×2 (08:26→21:06)
[2020-05-06] MEDS: Insulin Lispro 100 Unit/ML 3 ML KwikPen SUBCUT SCH ×4 (08:29→19:27)
[2020-05-06] MEDS ORDERED: OXYBUTYNIN 10 MG PO SCH (09:00)
--- NOTE | 2020-05-06 12:13 | PCM.PN ---
- General Info Date of Service: 05/06/20 Subjective Update: No acute events overnight. She did have 1 fever about 3:00 in the morning which was smaller than previous. She feels better today with near resolution of her lower back pain. No nausea or vomiting and she is tolerating her diet. Blood sugars have been well controlled. Urine culture and 4 blood cultures are growing gram-negative rods but identification is still pending. Strength is improving. Functional Status: Reports: Pain Controlled, Tolerating Diet - Review of Systems General: Reports: Fever - Patient Data Vitals - Most Recent: Last Vital Signs Temp 36.2 C 05/06/20 10:36 Pulse 58 L 05/06/20 10:36 Resp 16 05/06/20 10:36 BP 99/55 L 05/06/20 10:36 Pulse Ox 92 L 05/06/20 10:36 Weight - Most Recent: 72.03 kg I&O - Last 24 Hours: Intake & Output 05/05/20 05/06/20 05/06/20 22:59 06:59 14:59 Intake Total 1544 Output Total 1450 750 Balance 94 -750 Lab Results Last 24 Hours: Laboratory Results - last 24 hr 05/05/20 05/05/20 05/05/20 Range/Units 19:28 19:28 19:28 WBC 9.2 (4.5-11.0) K/uL RBC 3.93 (3.30-5.50) M/uL Hgb 12.1 (12.0-15.0) g/dL Hct 36.4 (36.0-48.0) % MCV 93 (80-98) fL MCH 31 (27-31) pg MCHC 33 (32-36) % Plt Count 132 L (150-400) K/uL Neut % (Auto) 83 H (36-66) % Lymph % (Auto) 8 L (24-44) % [place] % (Auto) 9 H (2-6) % Eos % (Auto) 0 L (2-4) % Baso % (Auto) 0 (0-1) % Sodium 129 L (140-148) mmol/L Potassium 3.5 L (3.6-5.2) mmol/L Chloride 96 L (100-108) mmol/L Carbon Dioxide 20 L (21-32) mmol/L Anion Gap 16.5 H (5.0-14.0) mmol/L BUN 17 (7-18) mg/dL Creatinine 1.0 (0.6-1.0) mg/dL Est Cr Clr Drug Dosing 38.94 mL/min Estimated GFR (MDRD) 55 L (>60) Glucose 249 H (74-106) mg/dL POC Glucose (74-106) MG/DL Lactic Acid 0.7 (0.4-2.0) mmol/L Calcium 8.6 (8.5-10.1) mg/dL Magnesium (1.8-2.4) mg/dL Total Bilirubin 1.6 H (0.2-1.0) mg/dL AST 17 (15-37) U/L ALT 23 (12-78) U/L Alkaline Phosphatase 54 (46-116) U/L C-Reactive Protein 14.71 H (0.0-0.3) mg/dL Total Protein 6.4 (6.4-8.2) g/dL Albumin 2.9 L (3.4-5.0) g/dL Globulin 3.5 (2.3-3.5) g/dL Albumin/Globulin Ratio 0.8 L (1.2-2.2) Procalcitonin ng/mL 05/05/20 05/06/20 05/06/20 Range/Units 19:28 05:46 05:46 WBC 7.4 (4.5-11.0) K/uL RBC 3.69 (3.30-5.50) M/uL Hgb 11.2 L (12.0-15.0) g/dL Hct 34.7 L (36.0-48.0) % MCV 94 (80-98) fL MCH 30 (27-31) pg MCHC 32 (32-36) % Plt Count 125 L (150-400) K/uL Neut % (Auto) (36-66) % Lymph % (Auto) (24-44) % [place] % (Auto) (2-6) % Eos % (Auto) (2-4) % Baso % (Auto) (0-1) % Sodium 136 L (140-148) mmol/L Potassium 3.2 L (3.6-5.2) mmol/L Chloride 104 (100-108) mmol/L Carbon Dioxide 23 (21-32) mmol/L Anion Gap 12.2 (5.0-14.0) mmol/L BUN 13 (7-18) mg/dL Creatinine 1.0 (0.6-1.0) mg/dL Est Cr Clr Drug Dosing 38.94 mL/min Estimated GFR (MDRD) 55 L (>60) Glucose 193 H (74-106) mg/dL POC Glucose (74-106) MG/DL Lactic Acid (0.4-2.0) mmol/L Calcium 8.5 (8.5-10.1) mg/dL Magnesium 1.4 L (1.8-2.4) mg/dL Total Bilirubin (0.2-1.0) mg/dL AST (15-37) U/L ALT (12-78) U/L Alkaline Phosphatase (46-116) U/L C-Reactive Protein (0.0-0.3) mg/dL Total Protein (6.4-8.2) g/dL Albumin (3.4-5.0) g/dL Globulin (2.3-3.5) g/dL Albumin/Globulin Ratio (1.2-2.2) Procalcitonin 0.60 ng/mL 05/06/20 Range/Units 07:42 WBC (4.5-11.0) K/uL RBC (3.30-5.50) M/uL Hgb (12.0-15.0) g/dL Hct (36.0-48.0) % MCV (80-98) fL MCH (27-31) pg MCHC (32-36) % Plt Count (150-400) K/uL Neut % (Auto) (36-66) % Lymph % (Auto) (24-44) % [place] % (Auto) (2-6) % Eos % (Auto) (2-4) % Baso % (Auto) (0-1) % Sodium (140-148) mmol/L Potassium (3.6-5.2) mmol/L Chloride (100-108) mmol/L Carbon Dioxide (21-32) mmol/L Anion Gap (5.0-14.0) mmol/L BUN (7-18) mg/dL Creatinine (0.6-1.0) mg/dL Est Cr Clr Drug Dosing mL/min Estimated GFR (MDRD) (>60) Glucose (74-106) mg/dL POC Glucose 177 H (74-106) MG/DL Lactic Acid (0.4-2.0) mmol/L Calcium (8.5-10.1) mg/dL Magnesium (1.8-2.4) mg/dL Total Bilirubin (0.2-1.0) mg/dL AST (15-37) U/L ALT (12-78) U/L Alkaline Phosphatase (46-116) U/L C-Reactive Protein (0.0-0.3) mg/dL Total Protein (6.4-8.2) g/dL Albumin (3.4-5.0) g/dL Globulin (2.3-3.5) g/dL Albumin/Globulin Ratio (1.2-2.2) Procalcitonin ng/mL Med Orders - Current: Current Medications Acetaminophen (Tylenol) 650 mg PO Q4H PRN PRN Reason: Pain (Mild 1-3)/fever Last Admin: 05/06/20 03:21 Dose: 650 mg Documented by: Aspirin (Halfprin) 81 mg PO DAILY [facility] Last Admin: 05/06/20 08:25 Dose: 81 mg Documented by: Atorvastatin Calcium (Lipitor) 80 mg PO BEDTIME [facility] Last Admin: 05/05/20 22:48 Dose: Not Given Documented by: Citalopram Hydrobromide (Celexa) 20 mg PO DAILY [facility] Last Admin: 05/06/20 08:25 Dose: 20 mg Documented by: Magnesium Sulfate (Magnesium Sulfate In Water 2 Gm/50 Ml) 2 gm in 50 mls @ 25 mls/hr IV Q6H [facility] Stop: 05/06/20 23:59 Last Admin: 05/06/20 08:23 Dose: 25 mls/hr Documented by: Ceftazidime 1 gm/ Sodium (Chloride) 50 mls @ 100 mls/hr IV Q8H [facility] Last Admin: 05/06/20 09:45 Dose: 100 mls/hr Documented by: Insulin Glargine (Lantus Solostar) 12 units SUBCUT BEDTIME [facility] Last Admin: 05/05/20 22:49 Dose: Not Given Documented by: Insulin Human Lispro (Humalog) 0 unit SUBCUT QIDACANDBED [facility]; Protocol Last Admin: 05/06/20 08:29 Dose: 1 units Documented by: Lactobacillus Rhamnosus (Culturelle) 1 cap PO BID [facility] Last Admin: 05/06/20 08:25 Dose: 1 cap Documented by: Lorazepam (Ativan) 0.5 mg IVPUSH Q4H PRN PRN Reason: Nausea/Vomiting Magnesium Hydroxide (Milk Of Magnesia) 30 ml PO Q12H PRN PRN Reason: Constipation Melatonin (Melatonin) 9 mg PO BEDTIME PRN PRN Reason: Sleep Last Admin: 05/05/20 23:55 Dose: 9 mg Documented by: Metoprolol Succinate (Toprol Xl) 25 mg PO DAILY [facility] Last Admin: 05/06/20 08:26 Dose: 25 mg Documented by: Ondansetron HCl (Zofran) 4 mg IV Q6H PRN PRN Reason: Nausea/Vomiting Ondansetron HCl (Zofran Odt) 4 mg PO Q6H PRN PRN Reason: Nausea able to take PO Oxybutynin Chloride (Oxybutynin) 5 mg PO BID [facility] Last Admin: 05/06/20 08:26 Dose: 5 mg Documented by: Oxycodone HCl (Oxycodone) 5 - 10 mg PO Q4H PRN PRN Reason: Pain Potassium Chloride (Klor-Con M20) 40 meq PO BID [facility] Stop: 05/06/20 21:01 Last Admin: 05/06/20 08:25 Dose: 40 meq Documented by: Senna/Docusate Sodium (Senna Plus) 1 tab PO BID PRN PRN Reason: Constipation Spironolactone (Aldactone) 25 mg PO DAILY [facility] Last Admin: 05/06/20 08:24 Dose: 25 mg Documented by: Ticagrelor (Brilinta) 90 mg PO BID [facility] Last Admin: 05/06/20 08:24 Dose: 90 mg Documented by: Discontinued Medications Sodium Chloride (Normal Saline) 1,000 mls @ 999 mls/hr IV ASDIRECTED [facility] Last Admin: 05/05/20 19:53 Dose: 999 mls/hr Documented by: Ceftriaxone Sodium 1 gm/ (Sodium Chloride) 50 mls @ 100 mls/hr IV Q24H [facility] Last Admin: 05/05/20 19:59 Dose: 100 mls/hr Documented by: Sodium Chloride (Normal Saline) 1,000 mls @ 125 mls/hr IV ASDIRECTED [facility] Last Admin: 05/06/20 07:08 Dose: 125 mls/hr Documented by: Ciprofloxacin/Dextrose 400 mg/ (Premix) 200 mls @ 200 mls/hr IV ONETIME ONE Stop: 05/05/20 23:18 Last Admin: 05/05/20 22:32 Dose: 200 mls/hr Documented by: - Exam Quality Assessment: No: Supplemental Oxygen General: Alert, Oriented, Cooperative, No Acute Distress Lungs: Normal Respiratory Effort. No: Wheezing Cardiovascular: Regular Rate, Regular Rhythm GI/Abdominal Exam: Soft, No Distention Extremities: No Pedal Edema Psy/Mental Status: Alert, Normal Affect Sepsis Event Note - Evaluation Sepsis Screening Result: No Definite Risk - Focused Exam Vital Signs: Vital Signs Temp Temp Pulse Pulse Resp BP BP 05/06/20 10:36 36.2 C 58 L 16 99/55 L 05/06/20 08:26 57 L 98/47 L 05/06/20 07:29 36.2 C 59 L 16 92/55 L 05/06/20 07:00 36.4 C 57 L 20 97/52 L 05/06/20 03:51 36.4 C 05/06/20 03:21 38.3 C H 05/06/20 03:18 38.3 C H 76 18 109/49 L Pulse Ox 05/06/20 10:36 92 L 05/06/20 08:26 05/06/20 07:29 92 L 05/06/20 07:00 96 05/06/20 03:51 05/06/20 03:21 05/06/20 03:18 94 L - Problem List & Annotations (1) Pyelonephritis of left kidney SNOMED Code(s): 95972378 Code(s): N12 - TUBULO-INTERSTITIAL NEPHRITIS, NOT SPCF ACUTE OR CHRONIC Status: Acute Current Visit: Yes (2) Bacteremia SNOMED Code(s): 5391392 Code(s): R78.81 - BACTEREMIA Status: Acute Current Visit: Yes (3) Diabetes mellitus, insulin dependent (IDDM), controlled SNOMED Code(s): 21660263, 445510043, 427769011 Code(s): JQI4731 - Status: Chronic Current Visit: Yes (4) CAD (coronary artery disease) SNOMED Code(s): 59995739 Code(s): I25.10 - ATHSCL HEART DISEASE OF [place] CORONARY ARTERY W/O ANG PCTRS Status: Chronic Current Visit: Yes Qualifiers: Coronary Disease-Associated Artery/Lesion type: [place] artery [place] vs. transplanted heart: [place] heart Associated angina: without angina Qualified Code(s): I25.10 - Atherosclerotic heart disease of [place] coronary artery without angina pectoris - Problem List Review Problem List Initiated/Reviewed/Updated: Yes - My Orders Last 24 Hours: My Active Orders 05/05/20 20:58 Resuscitation Status Routine 05/05/20 22:19 Acetaminophen [TylenoL] 650 mg PO Q4H PRN Docusate Sodium/Sennosides [Senna Plus] 1 tab PO BID PRN Insulin Glarg,Human.Rec.Analog [LantUS Solostar] 12 units SUBCUT BEDTIME LORazepam [Ativan] 0.5 mg IVPUSH Q4H PRN Lactobacillus Rhamnosus GG [Culturelle] 1 cap PO BID Magnesium Hydroxide [Milk of Magnesia] 30 ml PO Q12H PRN Melatonin 9 mg PO BEDTIME PRN Ondansetron [Zofran ODT] 4 mg PO Q6H PRN Ondansetron [Zofran] 4 mg IV Q6H PRN Sodium Chloride 0.9% [Normal Saline] 1,000 ml IV ASDIRECTED Ticagrelor [Brilinta] 90 mg PO BID atorvaSTATin [Lipitor] 80 mg PO BEDTIME oxyCODONE 5 - 10 mg PO Q4H PRN 05/05/20 22:19 Patient Status [ADT] Routine Antiembolic Devices [RC] .Routine Communication Order [RC] PRN Communication Order [RC] PRN Diabetes Education [RC] Click to Edit Intake and Output [RC] QSHIFT Notify Provider Vital Signs [RC] ASDIRECTED Notify Provider [RC] PRN Oxygen Therapy [RC] PRN Up With Assistance [RC] ASDIRECTED VTE/DVT Education [RC] Per Unit Routine Vital Signs [RC] Q4H CULTURE URINE [RM] Routine Sequential Compression Device [OM.PC] Routine 05/06/20 07:00 Insulin Lispro [HumaLOG] See Protocol SUBCUT QIDACANDBED 05/06/20 08:00 Magnesium Sulfate/Water [Magnesium Sulfate in Water 2 GM/50 ML] 2 gm in 50 ml IV Q6H 05/06/20 09:00 Aspirin [Halfprin] 81 mg PO DAILY Citalopram [Celexa] 20 mg PO DAILY Metoprolol Succinate [Toprol XL] 25 mg PO DAILY Oxybutynin 5 mg PO BID Potassium Chloride [Klor-Con M20] 40 meq PO BID Spironolactone [Aldactone] 25 mg PO DAILY 05/06/20 10:00 cefTAZidime Pentahydrate [Fortaz] 1 gm Sodium Chloride 0.9% [Normal Saline] 50 ml IV Q8H 05/06/20 10:05 Blood Glucose Check, Bedside [RC] QIDACANDBED 05/06/20 11:30 GLUCOSE POC LAB TO COLLECT JPM [POC] QIDACANDBED 05/06/20 12:12 Convert IV to Saline Lock [OM.PC] Routine 05/06/20 16:30 GLUCOSE POC LAB TO COLLECT JPM [POC] QIDACANDBED 05/06/20 21:00 GLUCOSE POC LAB TO COLLECT JPM [POC] QIDACANDBED 05/07/20 05:00 BASIC METABOLIC PANEL,BMP [CHEM] Timed - Plan Plan:: ASSESSMENT AND PLAN - Left pyelonephritis-complicated by gram-negative bacteremia but no evidence for sepsis at this time. Improving overnight with IV antibiotics and fluids. Cultures are still pending and urine and blood cultures have a gram-negative hunter growing. -Antibiotic coverage with ceftazidime -Follow-up urine and blood cultures in the morning, adjust antibiotics as indicated -Saline lock IV -Symptomatic management of pain and nausea -Abdominal imaging if she worsens or does not get better Insulin-dependent diabetes mellitus-normally this is well controlled. Sugars have been controlled so far. 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 Last one was about 1 year ago. No active anginal symptoms at this time. -Continue medical management Maintenance issues - - DVT prophylaxis -mechanical in addition to dual antiplatelet therapy - GI prophylaxis -not indicated - Nutrition -consistent carbohydrates Disposition -anticipate discharge home after the hospital stay Primary care physician - Brandon Dickinson M.D.
[2020-05-06] MEDS: atorvaSTATin 20 MG Tab PO SCH (21:05)
[2020-05-06] MEDS: Insulin Glargine,Human Rec. Analog 100 Units/ML 3 ML Pen SUBCUT SCH (21:06)
[2020-05-07] MEDS: Spironolactone 25 MG Tab PO SCH (08:58)
[2020-05-07] MEDS: Lactobacillus Rhamnosus GG (Probiotic) Cap PO SCH (08:58)
[2020-05-07] MEDS: Oxybutynin 5 MG Tab PO SCH (08:58)
[2020-05-07] MEDS: Aspirin 81 MG Tab.EC PO SCH (08:58)
[2020-05-07] MEDS: Citalopram 20 MG Tab PO SCH (08:58)
[2020-05-07] MEDS: Metoprolol Succinate 25 MG Tab.ER PO SCH (08:59)
[2020-05-07] MEDS: Ticagrelor 90 MG Tab PO SCH (08:59)
[2020-05-07] MEDS: Insulin Lispro 100 Unit/ML 3 ML KwikPen SUBCUT SCH (09:00)
[2020-05-07] MEDS ORDERED: Psyllium Husk Powder Sugar Free 5.85 GM Packet PO SCH ×2 (11:30→13:00)
--- NOTE | 2020-05-07 12:28 | PCM.DCSUM1 ---
Discharge Summary - Hospital Course Brief History: 69-year-old female with history of insulin-dependent diabetes mellitus that is well controlled, coronary artery disease who presented with fevers and chills that persisted despite being started on antibiotics for urinary tract infection. She was admitted for management of pyelonephritis with gram-negative bacteremia. Diagnosis: Stroke: No - Discharge Data Discharge Date: 05/07/20 Discharge Disposition: Home, Self-Care 01 Condition: Good - Referral to Home Health Primary Care Physician: Brandon Moncada NP - Discharge Diagnosis/Problem(s) (1) Pyelonephritis of left kidney SNOMED Code(s): 13301294 ICD Code: N12 - TUBULO-INTERSTITIAL NEPHRITIS, NOT SPCF ACUTE OR CHRONIC Status: Acute (2) Bacteremia SNOMED Code(s): 5065727 ICD Code: R78.81 - BACTEREMIA Status: Acute (3) Diabetes mellitus, insulin dependent (IDDM), controlled SNOMED Code(s): 42932459, 776713918, 780134996 ICD Code: [id number] - Status: Chronic (4) CAD (coronary artery disease) SNOMED Code(s): 01660703 ICD Code: I25.10 - ATHSCL HEART DISEASE OF [place] CORONARY ARTERY W/O ANG PCTRS Status: Chronic Qualifiers: Coronary Disease-Associated Artery/Lesion type: [place] artery [place] vs. transplanted heart: [place] heart Associated angina: without angina Qualified Code(s): I25.10 - Atherosclerotic heart disease of [place] coronary artery without angina pectoris - Patient Summary/Data Consults: Consultations 05/07/20 07:51 PT Evaluation and Treatment [CONS] Routine Please Evaluate and Treat. PT Reason for Consult: Strengthening Pending Discharge: Yes Discharge Disposition: Home Special Instructions: home care if needed This query below is only for informational purposes and is not editable. Admission Diagnosis/Problem: Pyelonephritis Hospital Course: Pam presented to the emergency room after a call back from the emergency room noted positive blood cultures. She had been in the emergency room the night before with fever and chill and concern for a urinary tract infection. She had been given a dose of IV antibiotics the night before and was started on oral antibiotics. Despite this she continued to have fevers at home, some as high as 102.7. The day after being seen in the emergency room she had 4 blood cultures that returned positive for gram-negative rods. She was contacted for return evaluation in the emergency room and then admission to the hospital. At the time of admission her white count was normal. She was febrile. Kidney function and electrolytes were acceptable. She had pain in the left CVA area raising concern for pyelonephritis. There is no evidence for sepsis. She received a dose of ceftriaxone in the emergency room and also was given a dose of ciprofloxacin for Pseudomonas coverage. Overnight she had one low-grade fever but then her temperatures have been better. Symptomatically she was feeling somewhat better the day after discharge. Urine culture and blood cultures were still in process with a gram-negative hunter growing so we elected to use ceftazidime to include Pseudomonas coverage until cultures were final. There were no acute issues overnight the second night. Symptomatically she is feeling quite well on the day of discharge. She is a little weak but otherwise doing well. The urine culture and blood cultures grew out Serratia marcescens which was pansensitive. The plan is for her to go home and she will complete an additional 7 days of antibiotics for a total of 10 days of antibiotics for left- sided pyelonephritis. - Patient Instructions Diet: Diabetic Diet Activity: As Tolerated Showering/Bathing: May Shower Notify Provider of: Fever, Increased Pain, Nausea and/or Vomiting Other/Special Instructions: 1. You were in the hospital for management of left- sided pyelonephritis caused by a bacteria called Serratia marcescens. Your condition is improving with antibiotic therapy and IV fluids. I do recommend ongoing antibiotic therapy to complete a total of 10 days of treatment. Please complete the course of antibiotics prescribed by Dr. Moore in the emergency room. You should take cefuroxime (Ceftin) 500 mg twice daily with food for 7 days. Your first dose outside of the hospital will be due tonight. 2. Continue your other medications as previously prescribed. 3. Follow-up if your symptoms do not continue to get better or if they get worse. - Discharge Plan *PRESCRIPTION DRUG MONITORING PROGRAM REVIEWED*: Not Applicable *COPY OF PRESCRIPTION DRUG MONITORING REPORT IN PATIENT MARJORIE: Not Applicable Home Medications: Home Meds Citalopram Hydrobromide [Celexa] 20 mg PO DAILY 08/05/17 [History] Insulin Glarg,Human.Rec.Analog [Lantus Solostar] 12 units SQ BEDTIME 08/05/17 [History] Insulin Lispro [Humalog] 3 unit SQ TIDMEALS 08/05/17 [History] Losartan [Cozaar] 100 mg PO BEDTIME 08/05/17 [History] Metoprolol Succinate 25 mg PO DAILY 08/05/17 [History] Nitroglycerin [Nitrostat] 0.4 mg SL ASDIRECTED PRN 08/05/17 [History] Oxybutynin [Oxybutynin ER] 10 mg PO DAILY 08/05/17 [History] atorvaSTATin Calcium [Atorvastatin Calcium] 80 mg PO BEDTIME 08/05/17 [History] Aspirin [Halfprin] 81 mg PO DAILY 07/28/19 [History] [place]-3/DHA/Epa/Fish Oil [Fish Oil 1,000 mg Softgel] 1 cap PO BID 07/28/19 [History] Ticagrelor [Brilinta] 90 mg PO BID 07/28/19 [History] Spironolactone [Aldactone] 25 mg PO DAILY 08/30/19 [History] Cefuroxime Axetil [Ceftin] 500 mg PO BID 7 Days #14 tablet 05/04/20 [Rx] Cholecalciferol (Vitamin D3) [Vitamin D3] 2,000 unit PO BEDTIME 05/05/20 [History] Vitamin E (Dl,Tocopheryl Acet) [Vitamin E] 200 unit PO DAILY 05/05/20 [History] Oxygen Therapy Mode: Room Air Patient Handouts: Pyelonephritis, Adult, [id number], Cefuroxime Tablets Referrals: Brandon Moncada, [employer] [Primary Care Provider] - (1-2 weeks -follow-up if your symptoms do not continue to improve or if they get worse) - Discharge Summary/Plan Comment DC Time >30 min.: No - Patient Data Vitals - Most Recent: Last Vital Signs Temp 36.2 C 05/07/20 10:44 Pulse 65 05/07/20 10:44 Resp 16 05/07/20 10:44 BP 117/79 05/07/20 10:44 Pulse Ox 96 05/07/20 10:44 Weight - Most Recent: 71.668 kg I&O - Last 24 hours: Intake & Output 05/06/20 05/07/20 05/07/20 22:59 06:59 14:59 Intake Total 1050 1249 200 Output Total 2200 1000 Balance 1050 -951 -800 Lab Results - Last 24 hrs: Laboratory Results - last 24 hr 05/07/20 Range/Units 06:00 Sodium 139 L (140-148) mmol/L Potassium 4.3 (3.6-5.2) mmol/L Chloride 106 (100-108) mmol/L Carbon Dioxide 23 (21-32) mmol/L Anion Gap 14.3 H (5.0-14.0) mmol/L BUN 12 (7-18) mg/dL Creatinine 0.9 (0.6-1.0) mg/dL Est Cr Clr Drug Dosing 43.26 mL/min Estimated GFR (MDRD) > 60 (>60) Glucose 172 H (74-106) mg/dL Calcium 8.8 (8.5-10.1) mg/dL ADRIEN Results - Last 24 hrs: Microbiology 05/05/20 22:19 Urine Culture - Preliminary Urine, Clean Catch Med Orders - Current: Current Medications Acetaminophen (Tylenol) 650 mg PO Q4H PRN PRN Reason: Pain (Mild 1-3)/fever Last Admin: 05/06/20 03:21 Dose: 650 mg Documented by: Aspirin (Halfprin) 81 mg PO DAILY [facility] Last Admin: 05/07/20 08:58 Dose: 81 mg Documented by: Atorvastatin Calcium (Lipitor) 80 mg PO BEDTIME [facility] Last Admin: 05/06/20 21:05 Dose: 80 mg Documented by: Citalopram Hydrobromide (Celexa) 20 mg PO DAILY [facility] Last Admin: 05/07/20 08:58 Dose: 20 mg Documented by: Ceftazidime 1 gm/ Sodium (Chloride) 50 mls @ 100 mls/hr IV Q8H [facility] Last Admin: 05/07/20 10:32 Dose: 100 mls/hr Documented by: Insulin Glargine (Lantus Solostar) 12 units SUBCUT BEDTIME [facility] Last Admin: 05/06/20 21:06 Dose: 12 units Documented by: Insulin Human Lispro (Humalog) 0 unit SUBCUT QIDACANDBED [facility]; Protocol Last Admin: 05/07/20 09:00 Dose: 1 units Documented by: Lactobacillus Rhamnosus (Culturelle) 1 cap PO BID [facility] Last Admin: 05/07/20 08:58 Dose: 1 cap Documented by: Lorazepam (Ativan) 0.5 mg IVPUSH Q4H PRN PRN Reason: Nausea/Vomiting Magnesium Hydroxide (Milk Of Magnesia) 30 ml PO Q12H PRN PRN Reason: Constipation Melatonin (Melatonin) 9 mg PO BEDTIME PRN PRN Reason: Sleep Last Admin: 05/05/20 23:55 Dose: 9 mg Documented by: Metoprolol Succinate (Toprol Xl) 25 mg PO DAILY [facility] Last Admin: 05/07/20 08:59 Dose: 25 mg Documented by: Ondansetron HCl (Zofran) 4 mg IV Q6H PRN PRN Reason: Nausea/Vomiting Ondansetron HCl (Zofran Odt) 4 mg PO Q6H PRN PRN Reason: Nausea able to take PO Oxybutynin Chloride (Oxybutynin) 5 mg PO BID [facility] Last Admin: 05/07/20 08:58 Dose: 5 mg Documented by: Oxycodone HCl (Oxycodone) 5 - 10 mg PO Q4H PRN PRN Reason: Pain Psyllium Husk (Metamucil Sugar Free) 1 pkt PO DAILY [facility] Senna/Docusate Sodium (Senna Plus) 1 tab PO BID PRN PRN Reason: Constipation Spironolactone (Aldactone) 25 mg PO DAILY [facility] Last Admin: 05/07/20 08:58 Dose: 25 mg Documented by: Ticagrelor (Brilinta) 90 mg PO BID [facility] Last Admin: 05/07/20 08:59 Dose: 90 mg Documented by: Discontinued Medications Sodium Chloride (Normal Saline) 1,000 mls @ 999 mls/hr IV ASDIRECTED [facility] Last Admin: 05/05/20 19:53 Dose: 999 mls/hr Documented by: Ceftriaxone Sodium 1 gm/ (Sodium Chloride) 50 mls @ 100 mls/hr IV Q24H [facility] Last Admin: 05/05/20 19:59 Dose: 100 mls/hr Documented by: Sodium Chloride (Normal Saline) 1,000 mls @ 125 mls/hr IV ASDIRECTED [facility] Last Admin: 05/06/20 07:08 Dose: 125 mls/hr Documented by: Ciprofloxacin/Dextrose 400 mg/ (Premix) 200 mls @ 200 mls/hr IV ONETIME ONE Stop: 05/05/20 23:18 Last Admin: 05/05/20 22:32 Dose: 200 mls/hr Documented by: Magnesium Sulfate (Magnesium Sulfate In Water 2 Gm/50 Ml) 2 gm in 50 mls @ 25 mls/hr IV Q6H [facility] Stop: 05/06/20 23:59 Last Admin: 05/06/20 19:23 Dose: 25 mls/hr Documented by: Potassium Chloride (Klor-Con M20) 40 meq PO BID [facility] Stop: 05/06/20 21:01 Last Admin: 05/06/20 21:05 Dose: 40 meq Documented by:
== END 2020-05-07 13:16 | disposition home or self-care (01) | DRG 690 ==
LOC: JP.ED 18:00 → JP.MS 20:57
PROVIDERS: ADMIT Internal Medicine; ATTEND Internal Medicine
DX: N12 Tubulo-interstitial nephritis, not specified as acute or chronic (principal); R78.81 Bacteremia; H91.90 Unspecified hearing loss, unspecified ear; E11.9 Type 2 diabetes mellitus without complications; I25.10 Atherosclerotic heart disease of native coronary artery without angina pectoris; Z79.4 Long term (current) use of insulin; I10 Essential (primary) hypertension; I25.2 Old myocardial infarction; Z95.5 Presence of coronary angioplasty implant and graft; Z86.010 Personal history of colon polyps; Z87.442 Personal history of urinary calculi; F41.9 Anxiety disorder, unspecified; F32.9 Major depressive disorder, single episode, unspecified; Z88.1 Allergy status to other antibiotic agents; Z88.2 Allergy status to sulfonamides; Z79.82 Long term (current) use of aspirin; Z79.1 Long term (current) use of non-steroidal anti-inflammatories (NSAID); Z79.899 Other long term (current) drug therapy; Z86.718 Personal history of other venous thrombosis and embolism; Z79.01 Long term (current) use of anticoagulants; H54.7 Unspecified visual loss; R32 Unspecified urinary incontinence; Z98.42 Cataract extraction status, left eye; Z98.41 Cataract extraction status, right eye
CPT/HCPCS: 36415; 80053; 83605; 84145; 85025; 86140; 96365; 99284; J0696; J7030; 80048; 82962; 83735; 85027; 87086; 87088; 87186; 96367; 97110-GP; 97161-GP; 99222; 99231; 99238; A9270-GY; J0713; J0744; J1815; J1815-GY; J3475

== ENCOUNTER 2022-07-30 07:25 | Day surgery (SDC) | payer MEDICARE, BC ==
[~2022-07-30 07:25] MED LIST: Sodium Chloride 0.9% 1,000 ML IV SCH
[2022-07-30] MEDS ORDERED: Propofol 200 MG/20 ML SDV ONE (08:07)
[2022-07-30] MEDS ORDERED: fentaNYL 100 MCG/2 ML SDV ONE (08:08)
[2022-07-30] MEDS ORDERED: Sodium Chloride 0.9% 1,000 ML IV SCH (08:15)
[2022-07-30] MEDS ORDERED: Ondansetron 4 MG/2 ML SDV ONE (09:02)
== END 2022-07-30 10:30 | disposition home or self-care (01) ==
LOC: JP.SDS 07:25
PROVIDERS: ATTEND Surgery
DX: Z12.11 Encounter for screening for malignant neoplasm of colon (principal); K64.8 Other hemorrhoids; I50.9 Heart failure, unspecified; I21.4 Non-ST elevation (NSTEMI) myocardial infarction; E11.9 Type 2 diabetes mellitus without complications
CPT/HCPCS: 46221; G0121; J2405; J2704; J3010; J7030

== ENCOUNTER 2022-08-03 08:25 | Day surgery (SDC) | payer MEDICARE, BC ==
[2022-08-03] MEDS ORDERED: Dextrose 5%-Lactated Ringers 1,000 ML IV SCH (09:00)
[2022-08-03] MEDS ORDERED: fentaNYL 100 MCG/2 ML SDV ONE (09:38)
[2022-08-03] MEDS ORDERED: Propofol 200 MG/20 ML SDV ONE (09:39)
== END 2022-08-03 13:00 | disposition home or self-care (01) ==
LOC: JP.SDS 08:25
PROVIDERS: ATTEND Family Medicine
DX: Z12.11 Encounter for screening for malignant neoplasm of colon (principal); E11.9 Type 2 diabetes mellitus without complications; I11.0 Hypertensive heart disease with heart failure; I50.9 Heart failure, unspecified; E78.5 Hyperlipidemia, unspecified; I25.10 Atherosclerotic heart disease of native coronary artery without angina pectoris; Z88.1 Allergy status to other antibiotic agents; Z88.2 Allergy status to sulfonamides
CPT/HCPCS: J2704; J3010; J7121

== ENCOUNTER 2023-10-29 17:57 | Emergency (ER) | payer MEDICARE, BC | END 2023-10-29 19:14 | disposition left against medical advice (07) | LOC: JP.ED 17:57 | DX: Z53.21 Procedure and treatment not carried out due to patient leaving prior to being seen by health care provider (principal) ==